=== PATIENT | female | born 1965 | race Caucasian/White ===

== ENCOUNTER → 2021-01-09 01:50 | Outpatient (CLI) | payer OTHER, SELFPAY ==
--- NOTE | 2021-01-09 | DI.US_ITS ---
Exam(s) US PAIN CLINIC NEEDLE GUIDANCE EXAM: MUSCLE PAIN, RT UPPER SHOULDER PAIN,S46.911S,ULTRASOUND GUIDED INJECTION COMPARISON: US US THYROID from 10/03/2020 TECHNIQUE: Ultrasound performed using standard protocol. FINDINGS: Ultrasound guidance was provided for trigger point injection performed by neckties painter. Radiologist not present this procedure IMPRESSION: DATA REPOSITORY:
[2021-01-09 08:42] VITALS: BP 148/86; PULSE 76; RESP 16; TEMP 36.4; O2SAT 97
[2021-01-09 09:22] VITALS: PULSE 63; O2SAT 98
[2021-01-09] MEDS: Lidocaine 2% Pres-Free 5 ML VIAL IJ (09:22)
[2021-01-09] MEDS: Dexamethasone Sod. Phos./Pres-Free 10 MG/ML VIAL IJ (09:22)
--- NOTE | 2021-01-09 10:12 | PDOC.PAIN_ITS ---
Pain Clinic Procedure Note Procedure Note Procedure Note: ULTRASOUND GUIDED RIGHT trapezius, cervical paraspinous and levator scapulae muscle trigger point INJECTIONS Pre-Procedural Evaluation: More Hickman has been referred to the [facility] for an Ultrasound Guided right trapezius, cervical paraspinous and levator scapulae muscle trigger point injection for a chief complaint of upper back and neck pain. Pre-procedure Pain Score: 5/10 DX: Muscle pain Patient was interviewed and the medical record reviewed. There were no medical, pharmacologic, radiographic, or other structural contraindications to preforming an ultrasound guided injection. Risks and expected side effects as well as potential benefits of the procedure were reviewed. The patient consent form was signed and witnessed. Standard time-out procedure was performed. The use of direct ultrasound visualization of the needle (rather than a non- guided injection) was required to increase patient safety by excluding inadvertent intramuscular, intratendinous, or intraneural needle placement and minimizing bleeding by avoiding osteochondral or vascular injury from the needle. Additionally, the increased accuracy of placement may increase clinical effectiveness and will allow higher diagnostic specificity when evaluating effectiveness of this injection. Procedure Description: The patient was placed in theprone position and automated blood pressure cuff and pulse oximeter applied for monitoring during the procedure and recorded in the medical record. Pre-injection ultrasound scanning of the area of interest was performed using a linear transducer, identifying relevant anatomy, landmarks, and neurovascular structures allowing for optimal needle path. The site was then prepared in the usual sterile fashion, using thorough Chlorhexadine preparation of the skin and sterile draping. The same ultrasound transducer was then passed into the sterile field using sterile probe cover and sterile ultrasound gel. The injection target was again visualized. Skin and subcutaneous tissues were anesthetized with 1 mL of 1% Lidocaine. A 22 guage spinal needle 3.5 inch needle was placed under live ultrasound guidance, using an in-plane approach, to the target area. After visualization of the needle tip at the target area, a mixture of 4 mL 2% Lidocaine and 1 mL Dexamethasone (10 mg/cc), totaling 5 mL of injectate was delivered after negative aspiration for blood. Ultrasound images were captured and stored for documentation purposes. Post-procedure Pain Score: 1/10 Vital signs were stable throughout the procedure and were as recorded in the docflowsheet by the nursing staff. Follow up plans and appointments were discussed with the patient.Post procedure instruction was given as documented in nursing documentation and having met discharge criteria, they were discharged from the [facility]. COMMENTS: She did well with the procedure. She recently had an MRI of the lumbar spine completed and I reviewed that with her. I recommended that she come back for a follow up to determine appropriate treatment. Alfredo Hernandez DO, MPH Pain Management
== END ==
PROVIDERS: PCP Family Medicine; Visit Provider Preventive Medicine Occupational Medicine
DX: M79.18 Myalgia, other site (principal)
CPT/HCPCS: 20553; 76942

== ENCOUNTER 2021-05-08 12:15 | Outpatient (CLI) | payer MEDICARE, SELFPAY ==
--- NOTE | 2021-05-08 06:00 | DI.RAD_ITS ---
Exam(s) XR PAIN CLINIC LUMBAR SP 2V EXAM: XR PAIN CLINIC LUMBAR SP 2V CLINICAL HISTORY: Dx: Lumbar Spondylosis TECHNIQUE: Realtime digital imaging was performed. Seven hard copy images. CONTRAST MATERIAL: Water soluble contrast was administered. COMPARISON: No exams were available for comparison FINDINGS: Fluoroscopy was provided for Dr. Hernandez for guidance with lumbar spine pain clinic injection. Please s ee procedure note for details. IMPRESSION: Fluoro time 60 second DATA REPOSITORY: RADIATION DOSE DELIVERED: brooklyn Munson=28.03 mGy
[2021-05-08 12:32] VITALS: BP 138/86; PULSE 68; RESP 20; TEMP 36.1; O2SAT 97
--- NOTE | 2021-05-08 13:16 | PDOC.PAIN ---
Pain Clinic Procedure Note Procedure Note Procedure Note: Lumbar/Sacral Medial Branch Blocks More Hickman has been referred to the [facility] for lumbar/sacral medial branch blocks. COMMENTS: She was previously evaluated in our clinic. Dx: Lumbosacral spondylosis without myelopathy Pre-procedure pain VAS: 5/10 Patient was interviewed and the medical record reviewed. There were no medical, pharmacologic, radiographic or other structural contraindications to attempting fluoroscopically guided local anesthetic lumbar/sacral medial branch blocks. Risks and expected side effects as well as potential benefit of the procedure were reviewed and voiced concerns addressed. The printed consent form was signed and witnessed. Standard time-out procedure was performed. Patient was placed in the prone position on the fluoroscopy table and automated blood pressure cuff and pulse oximeter applied. The skin entry points for approaching the anatomic target points of the segmental medial branches of the bilateral L3-L5DR were identified with anfluoroscopy and marked. Following thorough Chlorhexadine preparation of the skin and draping and 1% lidocaine infiltration of the skin entry points and subcutaneous tissues, a 22 gauge spinal needle was placed under fluoroscopic guidance down on to the target point for each respective segmental medial branch.Position was confirmed in A/P, oblique and lateral views with 0.25ml of omnipaque 240. Coult be this method .5ml 0.5% Bupivacaine was injected or 1% Lidocaine. Vital signs were stable throughout the procedure and were as recorded in the docflowsheet by the nursing staff. Follow up plans and appointments were discussed and was instructed to keep careful note of how the usual pain was modified by these injections. Specifically was asked to keep a pain diary for the next 24 hours using a numeric pain scale of 0-10 and report these results at the follow-up visit. Post procedure instruction was given as documented in the nursing documentation and having met discharge criteria. Patient was discharged from the [facility]. Based on the medial branches blocked today, if the patient has adequate relief and we are able to proceed to radiofrequency ablation, the treatment should result in the denervation of the bilateral L4-L5 and L5-S1 FACET JOINTS]. We would expect to denervate a total of 4 facets during the radiofrequency ablation. COMMENTS: She will call back with her 1-4 hour post-procedure pain/activity levels. Post-procedure pain VAS: 0/10. Alfredo Hernandez DO, MPH [facility]-Pain Management [facility] CC: Matteo Grier
[2021-05-08] MEDS: Omnipaque 240 MG/ML 50 ML BTL IJ (13:37)
[2021-05-08] MEDS: Bupivacaine 0.5% Pres-Free 10 ML VIAL IJ (13:37)
[2021-05-08 13:39] VITALS: BP 148/88; PULSE 70; RESP 16; O2SAT 97
== END 2021-05-08 12:16 | disposition home or self-care (01) ==
LOC: PC 12:16
PROVIDERS: PCP Family Medicine; Visit Provider Preventive Medicine Occupational Medicine
DX: M47.817 Spondylosis without myelopathy or radiculopathy, lumbosacral region (principal)
CPT/HCPCS: 64493; 64494; 72100; Q9967

== ENCOUNTER 2021-06-17 14:56 | Outpatient (CLI) | payer MEDICARE, SELFPAY ==
--- NOTE | 2021-06-17 06:00 | DI.RAD_ITS ---
Exam(s) XR PAIN CLINIC LUMBAR SP 2V EXAM: XR PAIN CLINIC LUMBAR SP 2V CLINICAL HISTORY: Dx: Lumbar Spondylosis TECHNIQUE: 2D and realtime digital imaging was performed. CONTRAST MATERIAL: Refer to procedure report. COMPARISON: No exams were available for comparison FINDINGS: Fluoroscopy was provided for Dr. Hernandez during the performance of a lumbar medial branch block. Jose doe refer to the procedure report for complete details. Ka,r=41.65 mGy IMPRESSION:
[2021-06-17 15:11] VITALS: BP 161/101; PULSE 73; RESP 20; TEMP 36.8; O2SAT 98
--- NOTE | 2021-06-17 15:43 | PDOC.PAIN_ITS ---
Pain Clinic Procedure Note Procedure Note Procedure Note: Lumbar/Sacral Medial Branch Blocks More Hickman has been referred to the [facility] for lumbar/sacral medial branch blocks. COMMENTS: She did very well with her first LMBB on 05/08/21. Her pre-procedure pain VAS was 8/10. Dx: Lumbosacral spondylosis without myelopathy Patient was interviewed and the medical record reviewed. There were no medical, pharmacologic, radiographic or other structural contraindications to attempting fluoroscopically guided local anesthetic lumbar/sacral medial branch blocks. Risks and expected side effects as well as potential benefit of the procedure were reviewed and voiced concerns addressed. The printed consent form was signed and witnessed. Standard time-out procedure was performed. Patient was placed in the prone position on the fluoroscopy table and automated blood pressure cuff and pulse oximeter applied. The skin entry points for approaching the anatomic target points of the segmental medial branches of the bilateral L3-L5DR were identified with anfluoroscopy and marked. Following thorough Chlorhexadine preparation of the skin and draping and 1% lidocaine infiltration of the skin entry points and subcutaneous tissues, a 22 gauge 5 spinal needle was placed under fluoroscopic guidance down on to the target point for each respective segmental medial branch.Position was confirmed in A/P, oblique and lateral views with 0.25ml of omnipaque 240. At this point I injected 0.5ml of 2% Lidocaine to the segmental sensory nerves. Vital signs were stable throughout the procedure and were as recorded in the docflowsheet by the nursing staff. Follow up plans and appointments were discussed and was instructed to keep careful note of how the usual pain was modified by these injections. Specifically was asked to keep a pain diary for the next 24 hours using a numeric pain scale of 0-10 and report these results at the follow-up visit. Post procedure instruction was given as documented in the nursing documentation and having met discharge criteria. Patient was discharged from the [facility]. Based on the medial branches blocked today, if the patient has adequate relief and we are able to proceed to radiofrequency ablation, the treatment should result in the denervation of the bilateral L4-L5 and L5-S1 FACET JOINTS. We would expect to denervate a total of 4 facets during the radiofrequency ablation. COMMENTS: Post-procedure pain VAS was 0/10. Alfredo Hernandez DO, MPH [facility]-Pain Management [facility] CC: Matteo Grier
[2021-06-17] MEDS: Omnipaque 240 MG/ML 50 ML BTL IJ (15:48)
[2021-06-17] MEDS: Lidocaine 2% Pres-Free 5 ML VIAL IJ (15:49)
[2021-06-17 16:05] VITALS: BP 141/100; PULSE 69; RESP 18; O2SAT 98
== END 2021-06-17 14:57 | disposition home or self-care (01) ==
LOC: PC 14:57
PROVIDERS: PCP Family Medicine; Visit Provider Preventive Medicine Occupational Medicine
DX: M47.817 Spondylosis without myelopathy or radiculopathy, lumbosacral region (principal)
CPT/HCPCS: 64493; 64494; 72100; Q9967

== ENCOUNTER 2021-08-27 09:38 | Outpatient (CLI) | payer MEDICARE, SELFPAY ==
[2021-08-27 10:07] VITALS: BP 164/109; PULSE 69; RESP 20; TEMP 36.5; O2SAT 99
[2021-08-27] MEDS: Midazolam 2 MG/2 ML VIAL IVP (10:40)
[2021-08-27] MEDS: fentaNYL 100 MCG/2 ML VIAL IVP ×2 (10:40→10:56)
[2021-08-27 11:25] VITALS: BP 100/68; PULSE 49; RESP 15; O2SAT 87
--- NOTE | 2021-08-27 11:26 | DI.RAD_ITS ---
Exam(s) XR PAIN CLINIC LUMBAR SP 2V EXAM: XR PAIN CLINIC LUMBAR SP 2V CLINICAL HISTORY: Dx: Lumbar Spondylosis TECHNIQUE: 2D and realtime digital imaging was performed. CONTRAST MATERIAL: Refer to procedure report. COMPARISON: No exams were available for comparison FINDINGS: Fluoroscopy was provided for Dr. Hernandez during the performance of a lumbar radiofrequency ablation. Pl ease refer to the procedure report for complete details. Ka,r=72.9 mGy IMPRESSION:
--- NOTE | 2021-08-27 11:29 | PDOC.PAIN ---
Pain Clinic Procedure Note Procedure Note Procedure Note: Bilateral Lumbar Radiofrequency with Coolief Machine PROCEDURE NOTE Date of Service: August 27, 2021 Patient: More Duvall Provider: Alfredo Hernandez DO, MPH Pre Operative Diagnosis: Lumbosacral Spondylosis without Myelopathy Post Operative Diagnosis: Same Pre-procedure pain; VAS= 7/10 PROCEDURE: Radiofrequency Ablation of medial branches - Bilateral L3 L4 L5 and lateral branches of bilateral S1. More Hickman was brought into the fluoroscopy suite and positioned into the prone position on the fluoroscopy table and allowed to adjust to a position of comfort. A grounding pad was placed on the left thigh. The lumbar region was widely prepped with a chloraprep solution, allowed to air dry and draped in standard sterile surgical fashion. Local anesthesia was provided by 4 mL of 2 % Lidocaine delivered with a 25g needle. A 17g 150 mm radiofrequency introducer needle was placed to the planned anatomic targets guided with intermittent fluoroscopy with a perpendicular approach to terminally place at the junction of the superior articular process and the transverse process of the bilateral L4 L5, the base of the sacral ala on the bilateral for the L5 medial branch nerve and the area between base of the sacral ala to the S1 foramen bilaterally. The stylets were removed and radiofrequency probes with a 4mm active tip were then inserted. Needle tip position of the probes was verified in the AP, oblique, and lateral views. At each site, the medial branch nerve was stimulated at 2 Hz to a maximum 1-2 volts determined to finalize safe needle and electrode placement. The patient was awake and responsive during this portion of the procedure. Each target was anesthetized with 1-2 mL of 2% Lidocaine for anesthesia for lesioning and then each target was lesioned at 80 degrees Celsius for 2 minutes and 30 seconds. Tissue impedences were noted to be between 250 and 500 Ohms. I injected 1/4 cc of Depomedrom (40 mg/cc) followed by 1 cc of Bupivacaine (0.5%) at each segmental sensory nerve. Electrodes and needles were then removed and bandages placed over the needle placement sites, the patient then returned to the supine position on a stretcher and transported to the recovery room without hemodynamic, neurologic, or allergic reactions. Fluoroscopic images were printed for hard copy recording and digitally archived. POST PROCEDURE EVALUATION: IMPRESSION: 1. Summary of procedure. Medication given is documented in the MAR. 2. The patient will be contacted in 1-3 weeks 3. Estimated Blood Loss: <5 mls 4. Fluoroscopy time: Documented in the EMR. Follow up plans and appointments were discussed with the More . Post procedure instruction was given as documented in nursing documentation and having met discharge criteria, More was discharged from the Pain Management Center. COMMENTS: No apparent complications. Post-procedure pain: VAS= 1/10. F/U with our office as needed. I personally performed this entire procedure. Alfredo Hernandez DO, MPH Attending Physician Pain Management
[2021-08-27] MEDS: Bupivacaine 0.5% Pres-Free 30 ML VIAL IJ (11:44)
[2021-08-27] MEDS: methylPREDNISolone ACETATE 40 MG/ML VIAL IJ (11:44)
[2021-08-27 11:45] VITALS: BP 120/69; PULSE 75; RESP 20; O2SAT 98
[2021-08-27] MEDS: Lidocaine 2% Multi-Dose 20 ML VIAL IJ (11:45)
[2021-08-27] MEDS: Lactated Ringers 500 ML 80 ML IV (11:46)
== END 2021-08-27 09:39 | disposition home or self-care (01) ==
LOC: PC 09:38
PROVIDERS: PCP Family Medicine; Visit Provider Preventive Medicine Occupational Medicine
DX: M47.817 Spondylosis without myelopathy or radiculopathy, lumbosacral region (principal); M54.50 Low back pain, unspecified
CPT/HCPCS: 64635; 64636; 72100; J1030; J2250; J3010; J3490

== ENCOUNTER 2021-10-23 13:47 | Outpatient (CLI) | payer MEDICARE, SELFPAY ==
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
--- OUTSIDE RECORDS SUMMARY | 2021-10-23 13:53 | XMS_ITS | Encounter Summary ---
:1965 Author Organization [place] [address] Care Team Providers Name Role Phone Roula Hernandez DO Primary Care Provider Reason for Visit Reason Comments Establish Care High Triglycerides (1109) Encounter Details Date Type Department Care Team Description 11/10/2013 Office Visit Cardiology at [facility] Jr., Hypertr iglyceridemia; Mare HERRERA Sleep apnea [address] [facility] [address] [facility] [address]ef[address] A [address] [place], [place] [id number] [phone] Social History Tobacco Use Types Packs/Day Years Used Date Former Smoker Cigarettes 0.5 20 Comments: quit 16 years ago Sex Assigned at Date Recorded Not on file documented as of this encounter Last Filed Vital Signs Vital Sign Reading Time Taken Comments Blood Pressure 124/76 11/10/2013 8:31 AM left arm naya ding EDT Pulse 64 11/10/2013 8:31 AM per ekg EDT Temperature - - Respiratory Rate - - Oxygen Saturation - - Inhaled Oxygen Concentration - - Weight 103.4 kg (228 lb) 11/10/2013 8:25 AM EDT Height 160 cm (5' 3) 11/10/2013 8:25 AM EDT Body Mass Index 40.39 11/10/2013 8:25 AM EDT documented in this encounter Patient Instructions Patient InstructionsBacilio Lau Jr., MD - 11/10/2013 9:23 AM EDT Exercise Physical activity- minimum of 30 minutes of moderate intensity physical activity on most, or preferably all, days of the week - 3 hours of walking a week gives a 35% reduction in angina and heart attacks - Benefits of Exercise ??? 1) Increased bone strength ??? 2) Increased cardiovascular conditioning ? ? 3) Improved cholesterol: decreased LDL(bad stuff) & increased HDL(good stuff) ??? 4) Increased sense of well being ??? 5) Better weight control/weight loss ??? 6) Decreased Blood pressure ??? 7) Decreased stress ??? 8) Reduced Risk of Heart Attack ??? Tricks to exercising- - 1) Do it long enough (1/2 hour or more) - 2) Do it hard enough (you can talk, but not a long conversation) - 3) Do it often enough (every day if possible) - 4) Do it safely ( don't hurt your joints) - 5) Do something you like (or at least don't hate) - 6) Start out gradually if you haven???t been exercising - The older you are the more you have to stretch Wait 1-2 hours after eating Calorie Burn calculator: http://www.exrx.net/Aerobic/WalkCalExp.html http://www.Agricultural Solutionsrx.net/Calculators/Calories.html documented in this encounter Progress Notes Bacilio Lau Jr., MD - 11/10/2013 9:11 AM EDT Referring PCP: ROULA HERNANDEZ DO Cardiology consultation History: Roula Mantilla is a 48 y.o. old female seen at the request of ROULA HERNANDEZ DO for evaluation of edema and high triglycerides. She has a long standing history of hyperlipidemia and has been on lovastatin for years. I do not have old labs to review but the most recent ones are as below. She has gained weight in the last 9 months due to fatigue and decreased exercise. She was found to be allergic to mold in her house and is now feeling better, back to work, and doing some light activity. She notices more DIAZ now than before she was sick. She has no exertional chest pain or palpitations. 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 Allergies Allergen Reactions ??? Cis Free Text Allergy grass, tree, dust. CIS - positive skin test ??? Gloves, Latex CIS - positive skin test Current Outpatient Prescriptions Medication Sig Dispense Refill ??? propranolol (INDERAL) 40 mg tablet Take 40 mg by mouth 2 times daily. ??? minocycline (MINOCIN;DYNACIN) 50 mg capsule Take 50 mg by mouth 2 times daily. ??? lovastatin (MEVACOR) 40 mg tablet Take 40 mg by mouth 2 times daily. ??? cyclobenzaprine (FLEXERIL) 5 mg tablet Take 5 mg by mouth 2 times daily as needed. ??? traMADol (ULTRAM) 50 mg tablet Take 50 mg by mouth 2 times daily as needed. ??? senna (SENOKOT) 8.6 mg tablet Take 3 tablets by mouth daily as needed. ??? lubiprostone (AMITIZA) 24 mcg capsule Take 24 mcg by mouth 2 times daily (with meals). ??? mometasone (ELOCON) 0.1 % cream Apply topically daily. ??? desoximetasone (TOPICORT) 0.25 % cream Apply topically. As directed by PCP ??? levothyroxine (SYNTHROID) 25 mcg tablet Take 25 mcg by mouth daily. ??? cyanocobalamin, vitamin B-12, 250 mcg tablet Take 250 mcg by mouth 2 times daily. ??? lactobacillus (BACID) tablet Take 1 tablet by mouth daily. Patient Active Problem List Diagnosis ??? Elevated cholesterol with elevated triglycerides ??? Fibromyalgia ??? Obesity ??? Rosacea ??? Migraines ??? Irritable bowel syndrome ??? Hypothyroidism ??? Sleep apnea On CPAP ??? Raynaud's syndrome Coronary risk factors: Smoking: former Diabetes:no Hypercholesterolemia:yes Hypertension:no Family history of premature disease:father with cerebral aneurysm Cardiac tests: Echo 10/2013: EF 65%, normal diastolic function, trivial MR and TR, trivial pericardial effusion, PA pressure 35-40mmHg Surgical history or other active medical issues: Recent cholecystectomy Family History Problem (# of Occurrences) Relation (Name,Age of Onset) Asthma (1) Mother Diabetes (2) Maternal Aunt, Paternal Grandfather Hyperlipidemia (1) Father History Social History ??? Marital Status: Spouse Name: N/A Number of Children: N/A ??? Years of Education: N/A Occupational History ??? [employer] Social History Main Topics ??? Smoking status: Former Smoker -- 0.5 packs/day for 20 years Types: Cigarettes ??? Smokeless tobacco: None Comment: quit 16 years ago ??? Alcohol Use: None ??? Drug Use: None ??? Sexually Active: None Other Topics Concern ??? None Social History Narrative ??? None ROS: weight gain as above, sleeping well with CPAP, headaches fairly well controlled, otherwise negative except as above Physical Exam: BP 124/76 Pulse 64 Ht 160 cm (5' 3) Wt 103.42 kg (228 lb) BMI 40.40 kg/m2 General: WD, overweight Skin: no rash HEENT: no xanthoma or arcus senilis Neck: No JVD, HJR, or carotid abnormalities, thyroid benign Lungs: Clear Cor: RR, normal S1, S2. PMI not displaced. No murmur or gallop Abd: soft, scars well healed, no L/S/K enlargement or bruits Ext: Pulses preserved, equal bilaterally, 1+ edema, no cyanosis or clubbing Musculoskeletal: no muscle tenderness, no joint deformities Neuro: grossly nonfocal Psych: normal affect, appropriate EKG: NSR 64, normal Lab data: Results for ROULA MANTILLA ( ) as of 11/10/2013 09:11 Ref. Range 09/29/2013 00:00 Chol, Total No range found 279 HDL No range found 36 Triglycerides No range found 1109 LDL Cholesterol No range found 91 TSH: 2.195 Assessment: 1) dyspnea likely from weight gain and deconditioning. Normal EF on echo and no significant valve disease. I encouraged her to gradually be more active and to aim for at least 30 minutes of exercise a day. 2) high TG- made worse by weight and inactivity, but high enough that meds will have to be adjusted.I will stop lovastatin and start gemfibrozil 600mg BID. TSH corrected so residual hypothyroidism notcontributing to high TG. 3) edema- due to weight and inactive job, sitting all day. Increased exercise will help as will using elastic stockings Plan: 1) A discussion was held concerning the patient's chief complaints, the presumptive diagnosis(es) and the options for further evaluation and management. Reviewed the assessment above and the recommendations below in detail. 2) medical therapy as above 3) Written instructions re exercise 4) follow up 3 months with repeat lipid labs before documented in this encounter Plan of Treatment Not on filedocumented as of this encounter Visit Diagnoses Diagnosis Hypertriglyceridemia Pure hyperglyceridemia Sleep apnea Unspecified sleep apnea documented in this encounter Care Teams [employer] Worker Relationship Specialty Start Date End Date Roula Heranndez DO PCP - General 10/05/13 09/03/15 [address] [place] [address] documented as of this encounter
--- OUTSIDE RECORDS SUMMARY | 2021-10-23 13:53 | XMS_ITS | Encounter Summary ---
:1965 Author Organization [facility] [place] [address] Care Team Providers Name Role Phone Matteo Grier DO Primary Care Provider Reason for Referral Diagnostic Test (Routine) - Closed Specialty Diagnoses / Procedures Referred By Contact Refer red To Contact Radiology Diagnoses Low back pain, non-specific [facility] Rad Mri Procedures MRI Lumbar Spine wo Contrast (Generic) [place] [address] [place] [phone] Phone: Referral ID Status Reason Start Date Expiration Date Visits V isits Requested Authorized [id number] Closed Specialty 10/29/2016 12/27/2016 1 1 Service Requested Encounter Details Date Type Department Care Team Description 10/06/2016 Orders Only [facility], Low back pain, [place] DATA MANAGEMENT ANALYST [place] [address] Social History Tobacco Use Types Packs/Day Years Used Date Former Smoker Cigarettes 0.5 20 Comments: quit 16 years ago Sex Assigned at Date Recorded Not on file documented as of this encounter Plan of Treatment Not on filedocumented as of this encounter Results MRI Lumbar Spine wo Contrast (Generic) (11/06/2016 1:45 PM EDT) Anatomical Region Laterality Modality L-spine Magnetic Resonance Specimen (Source) Anatomical Location Collection Method / Collectio n Time Received Time / Laterality Volume Impressions 11/06/2016 2:49 PM EDT Exaggerated lumbar lordosis and moderate hypertrophic L4-5 facet arthropathy. No central canal stenosis. Diffusely heterogeneous signal of the re gional bone marrow which may reflect bone demineralization. Comment: The following findings are so c ommon in people without low back pain that while we report their presence, the y must be interpreted with caution and in context of the clinical situation (Re kandace Reed et al, Spine 2001). Findings: (Prevalence in patients withou t low back pain), disc degeneration (decreased T2 signal, height loss, bulge ) (91%), disc T2-signal loss (83%), disc height loss (56%), disc bulge (64%), dis c protrusion (32%), annular fissure (38%). Narrative 11/06/2016 2:49 PM EDT EXAMINATION: MRI LUMBAR SPINE WO CONTRAST (GENERIC) CLINICAL HISTORY: low back pain TECHNIQUE: MRI of the lumbar spine was p erformed without contrast, routine radiculopathy protocol. ? COMPARISON: MRI lumbar spine FINDINGS: Exaggerated lumbar lordosis wi th minimal retrolisthesis of L1 with respect to L2. The regional bone marrow is diffusely heterogeneous in signal without focal aggressive process. The ve rtebral body heights are maintained. The conus is normal in signal and caliber, t erminating at L1-L2. Visualized retroperitoneal contents are unremarkabl e. Findings at individual levels: T12-L1: ??Degenerative disc disease with out canal or neural foraminal stenosis. L1-L2: ??Mild annular disc bulge contrib utes to mild subarticular recess narrowing. No significant central canal or neural foraminal stenosis. L2-L3: ??MR annular disc bulge. No signi ficant spinal canal or neural foraminal stenosis. ? L3-L4: ??Minimal annular disc bulge and minimal left subarticular recess narrowing. No significant spinal canal o r neural foraminal stenosis. ? L4-L5: ??Hypertrophic facet arthropathy contributes to mild left subarticular recess and neural foraminal narrowing. N o central canal or right neural foraminal stenosis. ? L5-S1: ??Mild facet arthropathy. No sign ificant spinal canal or neural foraminal stenosis. ? Procedure Note Belinda Hagen MD - 11/06/2016Form atting of this note might be different from the original. EXAMINATION: MRI LUMBAR SPINE WO CONTRAS T (GENERIC) CLINICAL HISTORY: low back pain TECHNIQUE: MRI of the lumbar spine was p erformed without contrast, routine radiculopathy protocol. COMPARISON: MRI lumbar spine FINDINGS: Exaggerated lumbar lordosis wi th minimal retrolisthesis of L1 with respect to L2. The regional bone marrow is diffusely heterogeneous in signal without focal aggressive process. The ve rtebral body heights are maintained. The conus is normal in signal and caliber, t erminating at L1-L2. Visualized retroperitoneal contents are unremarkabl e. Findings at individual levels: T12-L1: Degenerative disc disease withou t canal or neural foraminal stenosis. L1-L2: Mild annular disc bulge contribut es to mild subarticular recess narrowing. No significant central canal or neural foraminal stenosis. L2-L3: MR annular disc bulge. No signifi cant spinal canal or neural foraminal stenosis. L3-L4: Minimal annular disc bulge and mi nimal left subarticular recess narrowing. No significant spinal canal o r neural foraminal stenosis. L4-L5: Hypertrophic facet arthropathy co ntributes to mild left subarticular recess and neural foraminal narrowing. N o central canal or right neural foraminal stenosis. L5-S1: Mild facet arthropathy. No signif icant spinal canal or neural foraminal stenosis. IMPRESSION Exaggerated lumbar lordosis and moderate hypertrophic L4-5 facet arthropathy. No central canal stenosis. Diffusely heterogeneous signal of the re gional bone marrow which may reflect bone demineralization. Comment: The following findings are so c ommon in people without low back pain that while we report their presence, the y must be interpreted with caution and in context of the clinical situation (Re ference- Jarvik et al, Spine 2001). Findings: (Prevalence in patients withou t low back pain), disc degeneration (decreased T2 signal, height loss, bulge ) (91%), disc T2-signal loss (83%), disc height loss (56%), disc bulge (64%), dis c protrusion (32%), annular fissure (38%). Christopher Hinton MD IMG MRI ORDERABLES documented in this encounter Visit Diagnoses Diagnosis Low back pain, non-specific Low back pain, non-specific documented in this encounter Care Teams Wire Coiler Machine Operator Relationship Specialty Start Date End Date Matteo Grier DO PCP - General Family Medicine 08/10/16 [address] [place] [address] documented as of this encounter
--- OUTSIDE RECORDS SUMMARY | 2021-10-23 13:53 | XMS_ITS | Encounter Summary ---
:1965 Author Organization [facility] [place] [address] Care Team Providers Name Role Phone Ruddy Lima DO, David Primary Care Provider Reason for Visit Reason Comments Follow-up Consultation (Routine) - Closed Specialty Diagnoses / Procedures Referred By Contact Refer red To Contact Dermatology Diagnoses Hyperhidrosis hyperhidrosis, red sensitive area on scalp Alfredo Fox DO Hammer, Charles J, MD [address] [place], [place] DERMATOLOGY [address] [place] [address] Fax: Referral ID Status Reason Start Date Expiration Date Visits V isits Requested Authorized [id number] Closed Consult, Test 09/04/2015 09/03/2016 [facility] PCP Updated and/or Approved Encounter Details Date Type Department Care Team Description 10/25/2015 Office Visit Dermatology at [facility] Maldonado Garza MD Hyperhidrosis; [address] [place] [address] [place] [address] [place] [address] (Wo rk) Social History Tobacco Use Types Packs/Day Years Used Date Former Smoker Cigarettes 0.5 20 Comments: quit 16 years ago Sex Assigned at Date Recorded Not on file documented as of this encounter Progress Notes Maldonado Garza MD - 10/25/2015 2:15 PM EDT PROBLEM: 1. Hyperhidrosis, new onset. 2. Skin check. More is a 50-year-old woman whom I last saw in 2000. She is concerned about 2 spots on the scalp, spots on her legs, she would like a full skin exam. She notes that for the last few years she has had increased sweating with just very mild exertion. It was never this bad in her youth. She would have a little bit of sweating, but now even just cleaning the house or sometimes even just sitting, she will sweat. She was in the past on levothyroxine. She states she has not taken any for a time. She is to see her PCP, Dr. Fox, within the next month, and thinks that he will probably be checking a TSH at that time. Her current medications were really were started primarily after the onset of the hyperhidrosis. She has tried DermiDry oral vitamin supplements for the last 2 or 3 months to try and help the problem. She is also on propranolol, Lovastatin, ibuprofen, minocycline, Savella, vitamin D, desoximetasone, senna, Elocon cream, vitamins B12 and D3. The patient, about 3 years ago, developed significant shortness of breath and fatigue, which was associated with mold exposure, living [place] house. She states that the onset of the profuse sweating seems to date since this problem. Physical examination reveals a pleasant, overweight 50-year-old woman who has a benign examination of the face, the chest, the back, the hands, arms, forearms, thighs, and the calves. Her skin is mildly moist as I examine her, and when she gets up off of the table, she has sweated and the legs stick to the exam table paper. She has 2 erythematous papules within her scalp, 1 in the left occipital, 1 in the right frontoparietal scalp. ASSESSMENT/PLAN: 1. Hyperhidrosis. A. Recommend that Dr. Fox check TSH with routine labs this year for patient, even though the patient's past diagnosis was hypothyroidism. B. Checked the patient's pulse, was about 70, and the patient denies episodes of palpitations or rapid heart rate, shortness of breath, etc. C. Begin trial of glycopyrrolate 1 mg p.o. b.i.d., try it for a month and then I have asked her to call me with her progress, dispensed #60 with 1 refill. If not effective, could go to 2 p.o. b.i.d. Discussed the side effects of the medication, warned about possible dry mouth, dry eyes, etc. D. Note, medications reviewed and no meds associated with causing hyperhidrosis found in her med list. 2. Benign skin examination. A. No evidence of any malignant lesions. B. Return to clinic here p.r.n. 3. Rosacea. A. Continue minocycline. B. I believe that this patient's scalp lesions represent mild rosacea. C. Patient reassured. Return to clinic here p.r.n. cc: Alfredo Fox DO documented in this encounter Plan of Treatment Not on filedocumented as of this encounter Visit Diagnoses Diagnosis Hyperhidrosis Primary focal hyperhidrosis Nevus Benign neoplasm of skin, site unspecifie d documented in this encounter Care Teams Dinkey Engine Firer Relationship Specialty Start Date End Date Alfredo Fox DO PCP - General General Internal Medicine 09/04/15 08/09/16 documented as of this encounter
--- OUTSIDE RECORDS SUMMARY | 2021-10-23 13:53 | XMS_ITS | Encounter Summary ---
:1965 Author Organization [facility] [place] [address] Care Team Providers Name Role Phone Roula Moody DO Primary Care Provider Reason for Visit Reason Onset Date Comments Advice Only 11/21/2013 FYI Encounter Details Date Type Department Care Team Description 11/21/2013 Telephone Cardiology at [facility] Bacilio Lau Jr., MD Advice Only (FYI) [address] [place] [address] [address] [place], [place] [id number] (Wo rk) Social History Tobacco Use Types Packs/Day Years Used Date Former Smoker Cigarettes 0.5 20 Comments: quit 16 years ago Sex Assigned at Date Recorded Not on file documented as of this encounter Miscellaneous Notes Telephone Encounter - Barbie Carvalho RN - 12/11/2013 4:24 PM EDT Spoke with patient - she seemed reluctant to try Lipitor agaihn, but did agree to take it every other day. [facility] Telephone Encounter - Bacilio Lau Jr., MD - 12/11/2013 3:39 PM EDT Have her try it every other day Telephone Encounter - Klaudia Nagel RN - 12/11/2013 3:21 PM EDT I called and gave her chol. Results and instructed her on starting Lipitor and she says she has tried that and also had muscle pain. Telephone Encounter - Bacilio Lau Jr., MD - 12/11/2013 7:42 AM EDT Labs worse off meds- did not tolerate gemfibrosil and lovastatin not effective so needs to go on atorvastatin 80 mg a day Repeat labs in 2 months before scheduled follow up visit Telephone Encounter - Laurie Khan RN - 12/08/2013 4:03 PM EDT External Lipid Results entered. Results for ROULA MANTILLA ( ) as of 12/08/2013 16:01 Ref. Range 09/29/2013 00:00 12/08/2013 00:00 Chol, Total No range found 279 312 HDL No range found 36 34 Triglycerides No range found 1109 1529 LDL Cholesterol No range found 91 108 Telephone Encounter - Klaudia Nagel RN - 11/21/2013 11:45 AM EDT Called and left message to remember to check lab work at the end of the month. Telephone Encounter - Bacilio Lau Jr., MD - 11/21/2013 11:34 AM EDT Needs to get the lipid labs as previously scheduled then will decide re other meds or just diet Telephone Encounter - Riya Ramos - 11/21/2013 9:35 AM EDT Patient called to let us know that since stopping gemfibrozil the severe muscle pains have gone away. See previous note. documented in this encounter Plan of Treatment Not on filedocumented as of this encounter Visit Diagnoses Diagnosis Elevated cholesterol - Primary Pure hypercholesterolemia documented in this encounter Care Teams Plastic Boat Patcher Relationship Specialty Start Date End Date Roula Moody DO PCP - General 10/05/13 09/03/15 [address] [place] [address] documented as of this encounter
--- OUTSIDE RECORDS SUMMARY | 2021-10-23 13:53 | XMS_ITS | Encounter Summary ---
:1965 Author Organization [facility] Address [place] [id number] Care Team Providers Name Role Phone More Moody DO Primary Care Provider Reason for Referral Physical Therapy (Routine) - Closed Specialty Diagnoses / Procedures Referred By Contact Refer red To Contact Physical Therapy Diagnoses Chronic low back pain Gina Morataya APRN [facility] [place] [address] Referral ID Status Reason Start Date Expiration Date Visits V isits Requested Authorized [id number] Closed Evaluate and 01/04/2015 07/03/2015 1 1 Treat Consultation (Routine) - Closed Specialty Diagnoses / Procedures Referred By Contact Refer red To Contact Pain Management Diagnoses Chronic low back pain Gina Morataya APRN [facility] Procedures PRO INJECTION, SACROILIAC JOINT [facility] [place] [address] [place] [address] Fax: Referral ID Status Reason Start Date Expiration Date Visits V isits Requested Authorized [id number] Closed Consult, 01/04/2015 01/04/2016 1 1 Test & Treat Reason for Visit Reason Comments Neck Pain Low Back Pain Encounter Details Date Type Department Care Team Description 01/04/2015 Office Visit [facility] [place], Gina M, Chronic low back pain [place] SURFACER OPERATOR [address] [place], [place] PAIN MEDICINE [address] [place] [address] [phone] Social History Tobacco Use Types Packs/Day Years Used Date Former Smoker Cigarettes 0.5 20 Comments: quit 16 years ago Sex Assigned at Date Recorded Not on file documented as of this encounter Progress Notes Gina Morataya, ELIAZAR - 01/04/2015 4:47 PM EDT Images from the original note were not included. Chief complaint: Chief Complaint Patient presents with ??? Neck Pain ??? Low Back Pain History of present illness:This patient is a 49 y.o. female that presents to the spine center for chronic neck pain, chronic mid back pain, chronic low back pain, new onset of right arm tingling and numbness and pain into the thumb and palm of the hand. She's had symptoms over the years and mentioned all these at her last physical in her primary care provider center here for evaluation. She's also had a number of other health problems over the years including fibromyalgia, she's had a gallbladder removal, she's had laparoscopic surgery for cystic changes on her ovaries, she's had a kidney stone removal all the last year. Her pain in her low back is about 5-10 on a scale 10 it's like a bar pain across her back burning and stabbing she gets leg pain and weakness down the lateral aspect above the knee with standing over 5minutes. Her symptoms in her arm and neck are worse with driving or driving her motorcycle. It's better with sitting worse with walking and standing. She doesn't sleep well but she also has fibromyalgia. She is clumsy but doesn't feel that she is weaker. She is only able to walk about a quarter of a mile and previously she was able to walk about a mile a day. Treatments have consisted of Motrin and chiropractics but she hasn't had physical therapy. Spine Center Response Trends Patient-reported scores: myD-H Spine Questionnaire responses 01/04/2015 VR36 - Physical Function (Range: 0-100) 24.1 VR36 - Bodily Pain (Range: 0-100) 32.2 VR36 - PCS (Range: 0-100) 34.2 VR36 - MCS (Range: 0-100) 40.8 Oswestry Disability Index (Range: 0-100) 42 Neck Disability Index (Range: 0-100) 54 (Severe disability) Past medical history: Fibromyalgia, hypercholesteremia, headache, cholecystectomy, nephrolithiasis, laparoscopic surgery for cyst removal Social and family history: He is and works as customer relations assistant. It sounds like a quite restrictive environment and she uses a headset but is still not able to get up and move around. Alcohol use is infrequent and she doesn't use tobacco. Problem List: Patient Active Problem List Diagnosis Code ??? Elevated cholesterol with elevated triglycerides E78.2 ??? Fibromyalgia M79.7 ??? Obesity E66.9 ??? Rosacea L71.9 ??? Migraines G43.909 ??? Irritable bowel syndrome K58.9 ??? Hypothyroidism E03.9 ??? Sleep apnea G47.30 ??? Raynaud's syndrome I73.00 Review of Systems: Negative for current GI, , or constitutional symptoms outside of some chronic constipation. Medications and allergies were reviewed and updated. Physical Examination: This is an obese female age 49. Her shoulders, hips, knees are developed inspection. She is left-hand dominant. She walks with a nonantalgic gait and tandem walk and single leg balance without difficulty. She has full range of motion of the cervical and lumbar spine but she has pain with facet loading in the lumbar spine which includes extension and side bending. She also has pain with Spurling's maneuver but no pain in the arm. Sensation, strength, and reflexes are all normal.SI joint dysfunction test her positive for out of 5 and significantly positive with shear testing. Dural tension signs in the lower extremity are normal. She has symmetrical reflexes that are 3 througho ut but there is no Dane or clonus and Babinski with downgoing toes. Diagnostic data: I reviewed her x-rays with her in her lumbar spine which do appear to have some facet arthropathy and lumbar spine and SI joint sclerosis. Her lumbar MRI reveals just some lower lumbardisc desiccation but no disc herniation. The cervical spine reveals several levels of cervical disc d egenerative changes with bilateral foraminal narrowing at several levels but this is from 2011 and not sufficient for current symptoms which have just started the last few months. Assessment: Problem #1 SI joint dysfunction, problem #2 facet arthropathy in the lumbar spine, problem #3 neck pain was C6 radicular symptoms Plan: I would like her to start exercising regularly and we discussed some ways to do that. She is going to see Elvia Rutledge in [facility] for physical therapy. She is also going to have an SI joint injection. She would like to try to schedule this locally and will let me know if that can be arranged otherwise will be scheduled here. Follow-up will be as needed. If she is not fully able to recover with physical therapy with Elvia Rutledge then I would recommend she begin some pool therapy this winter locally. This note was written with voice recognition software documented in this encounter Plan of Treatment Scheduled Referrals Name Type Priority Associated Diagnoses Order S chedule Referral to Pain Outpatient Referral Routine Chronic low back Ordered: Clinic pain 01/04/2015 Referral to Outpatient Referral Routine Chronic low back Orde red: Physical Therapy pain 01/04/2015 documented as of this encounter Visit Diagnoses Diagnosis Chronic low back pain Lumbago documented in this encounter Care Teams Barrel Planer Relationship Specialty Start Date End Date More Moody DO PCP - General 10/05/13 09/03/15 [address] [place] [address] documented as of this encounter
--- OUTSIDE RECORDS SUMMARY | 2021-10-23 13:53 | XMS_ITS | Encounter Summary ---
:1965 Author Organization [facility] [place] [address] Care Team Providers Name Role Phone More Moody DO Primary Care Provider Encounter Details Date Type Department Care Team Description 10/23/2013 Abstract Cardiology at [facility] Anabela Lau RN [address] [place] [address] Social History Tobacco Use Types Packs/Day Years Used Date Never Assessed Sex Assigned at Date Recorded Not on file documented as of this encounter Plan of Treatment Not on filedocumented as of this encounter Procedures Procedure Name Priority Date/Time Associated Diagnosis Comme nts TONSILLECTOMY AND Routine 09/29/2013 Results fo r this ADENOIDECTOMY procedure are in the results section . documented in this encounter Results Tonsillectomy and adenoidectomy (09/29/2013) P athologist Signature Chol, Total 279 mg/dL Triglycerides 1,109 mg/dL HDL 36 md/dL LDL Cholesterol 91 mg/dL Historical Provider GENERIC SURGICAL HISTORY documented in this encounter Visit Diagnoses Not on filedocumented in this encounter Care Teams Bradder Relationship Specialty Start Date End Date More Moody DO PCP - General 10/05/13 09/03/15 [address] [place] [address] documented as of this encounter
--- OUTSIDE RECORDS SUMMARY | 2021-10-23 13:53 | XMS_ITS | Encounter Summary ---
:1965 Author Organization [facility] [place] [address] Care Team Providers Name Role Phone Matteo Grier DO Primary Care Provider Encounter Details Date Type Department Care Team Description 04/25/2018 Telephone General Surgery at [facility] [place] [address] Social History Tobacco Use Types Packs/Day Years Used Date Former Smoker Cigarettes 0.5 20 Smokeless Tobacco: Never Used Comments: quit 16 years ago Sex Assigned at Date Recorded Not on file documented as of this encounter Miscellaneous Notes Telephone Encounter - Yane Preston - 04/25/2018 9:01 AM EST LMOM for patient to call the [facility] and let her know that she will need to complete her online registration before proceeding any further in the program. documented in this encounter Plan of Treatment Not on filedocumented as of this encounter Visit Diagnoses Not on filedocumented in this encounter Care Teams Route Sales Delivery Drivers Supervisor Relationship Specialty Start Date End Date Matteo Grier DO PCP - General Family Medicine 08/10/16 [address] [place], [place] [id number] documented as of this encounter
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
--- OUTSIDE RECORDS SUMMARY | 2021-10-23 13:53 | XMS_ITS | Encounter Summary ---
:1965 Author Organization [facility] [place] [address] Care Team Providers Name Role Phone More Moody DO Primary Care Provider Encounter Details Date Type Department Care Team Description 11/14/2013 Telephone Cardiology at [facility] Bacilio Lau Jr., MD [address] [facility] [address] A 580 [facility] [place] [address] [place] [address] (Wo rk) Social History Tobacco Use Types Packs/Day Years Used Date Former Smoker Cigarettes 0.5 20 Comments: quit 16 years ago Sex Assigned at Date Recorded Not on file documented as of this encounter Miscellaneous Notes Telephone Encounter - Aaliyah Knowles - 11/15/2013 3:11 PM EDT Pt was called and left a message that a lab slip was faxed to the [facility] lab. They were told it was a fasting lab and to be done in three weeks. Telephone Encounter - Bacilio Lau Jr., MD - 11/14/2013 12:46 PM EDT Patient called- started gemfibrozil after stopping lovastatin over the weekend- having severe muscleaches Advised to stop it and call if muscles do not feel better in 2-3 days Will check lipids in 3 weeks and decide then what to try next documented in this encounter Plan of Treatment Not on filedocumented as of this encounter Visit Diagnoses Not on filedocumented in this encounter Care Teams In Flight Refueling System Repairer Relationship Specialty Start Date End Date More Moody DO PCP - General 10/05/13 09/03/15 [address] [place] [address] documented as of this encounter
--- OUTSIDE RECORDS SUMMARY | 2021-10-23 13:53 | XMS_ITS | Encounter Summary ---
:1965 Author Organization [facility] [place] [address] Care Team Providers Name Role Phone Matteo Grier DO Primary Care Provider Reason for Referral Diagnostic Test (Routine) - Closed Specialty Diagnoses / Procedures Referred By Contact Refer red To Contact Radiology Diagnoses Low back pain, non-specific [facility] 3d [facility] Rad Mri Procedures MRI Lumbar Spine wo Contrast (Generic) [place] [address] [place] [address] Phone: Referral ID Status Reason Start Date Expiration Date Visits V isits Requested Authorized [id number] Closed Specialty 10/29/2016 12/27/2016 1 1 Service Requested Reason for Visit Diagnostic Test (Routine) - Closed Specialty Diagnoses / Procedures Referred By Contact Refer red To Contact Radiology Diagnoses Low back pain, non-specific [facility] Sp[facility] 3d [facility] Rad Mri Procedures MRI Lumbar Spine wo Contrast (Generic) [place] [address] [place] [address] Phone: Referral ID Status Reason Start Date Expiration Date Visits V isits Requested Authorized [id number] Closed Specialty 10/29/2016 12/27/2016 1 1 Service Requested Encounter Details Date Type Department Care Team Description 11/06/2016 Hospital Encounter MRI at [facility] Christopher Hinton, [facility] MD [address] non-[address] [place], [place] CENTER [address] SPINE CENTER [phone] [place] [address] Social History Tobacco Use Types Packs/Day Years Used Date Former Smoker Cigarettes 0.5 20 Smokeless Tobacco: Never Used Comments: quit 16 years ago Sex Assigned at Date Recorded Not on file documented as of this encounter Medications at Time of Discharge Medication Sig Dispensed Refills Start Date End Date minocycline (DYNACIN) 50 Take 50 mg by 0 mg Tablet mouth 2 times daily. propranolol (INDERAL) 40 Take 40 mg by 0 mg Tablet mouth 2 times daily. lovastatin (MEVACOR) 40 mg Take 40 mg by 0 Tablet mouth 2 times daily. multivitamin (THERAGRAN) Take 1 tablet by 0 Tablet mouth daily. SENNOSIDES (SENNA LAX Take 1 tablet by 0 ORAL) mouth daily. SACCHAROMYCES BOULARDII Take 1 tablet by 0 (PROBIOTIC, S.BOULARDII, mouth daily. ORAL) cholecalciferol, Vitamin Take 3 tablets by 0 D3, 5,000 unit Tablet mouth. cyanocobalamin, vitamin Take 250 mcg by 0 B-12, 250 mcg tablet mouth 2 times daily. glycopyrrolate (ROBINUL) 2 TAKE ONE TABLET BY 180 tablet 0 0 06/29/2016 09/05/2017 mg Tablet MOUTH TWICE DAILY SAVELLA 50 mg Tablet Take 50 mg by 0 11/14/2014 0 09/25/2020 mouth 2 times daily. lubiprostone (AMITIZA) 24 Take 24 mcg by 0 09/25/2020 mcg Capsule mouth 2 times daily (with meals). documented as of this encounter Plan of Treatment Not on filedocumented as of this encounter Procedures Procedure Name Priority Date/Time Associated Diagnosis Comme nts MRI LUMBAR SPINE Routine 11/06/2016 1:45 PM Low back pain, Res ults for this WITHOUT CONTRAST EDT non-specific procedure a re in the results section. documented in this encounter Results MRI Lumbar Spine wo [...] Visit Diagnoses Diagnosis Low back pain, non-specific documented in this encounter Care Teams Manager Investment Banking Relationship Specialty Start Date End Date Matteo Grier DO PCP - General Family Medicine 08/10/16 [address] [place] [address] documented as of this encounter
--- OUTSIDE RECORDS SUMMARY | 2021-10-23 13:53 | XMS_ITS | Encounter Summary ---
:1965 [place] [address] Care Team Providers Name Role Phone Matteo Grier DO Primary Care Provider Reason for Visit Reason Comments Low Back Pain Encounter Details Date Type Department Care Team Description 11/06/2016 [facility] Efrain camila k pain, Darrell HERRERA non-specific [facility] [address] [place], [place] SP[place]ENTER [id number] [place] [address] [phone] Social History Tobacco Use Types Packs/Day Years Used Date Former Smoker Cigarettes 0.5 20 Smokeless Tobacco: Never Used Comments: quit 16 years ago Sex Assigned at Date Recorded Not on file documented as of this encounter Progress Notes Christopher Hinton MD - 11/06/2016 2:20 PM EDT Talib Hauser MD [facility] [place] [address] Matteo Grier DO [address] [facility] [address] Dear Colleagues, I had the pleasure of seeing this patient at the [facility] for surgical evaluation. ?? CHIEF COMPLAINT: Back pain. ?? DIAGNOSIS: 1. Chronic back and to some degree neck pain. 2. Lumbar spondylosis. 3. T12-L1 vertebral body kyphosis, mild. ?? PRIOR TREATMENTS: SI joint injection, worked quite well. Cherrie therapy. Pain meds. ?? IMAGING: C-spine in October 2014 as well as a MRI done in March 2013 showed degenerative changes. ?? PROGNOSTIC FACTORS: BMI 37.9. Fibromyalgia. Nondiabetic. Former smoker. Not on narcotics. ?? SUMMARY AND PLAN: This patient returns to clinic. MRI not read yet but reviewed with NR. Bone signalchanges but No specific red flag. Rec FRP program. Zuleyma saw patient. All questions answered. No indication for surgical mgt. ?? Past medical history, past surgical, medications, allergies, social and family history were updated in eD-H. Of note, past medical history noted for fibromyalgia, obesity, migraines, irritable bowel syndrome, hypothyroidism, Raynaud's syndrome, and sleep apnea. ?? No prior spine surgery. ?? FAMILY HISTORY: Noncontributory. ?? SOCIAL HISTORY: Former smoker. ?? ALLERGIES: LATEX, TYLENOL WITH CODEINE. ?? MEDICATIONS: See eDH ?? PHYSICAL EXAMINATION: Alert and oriented female. Affect is within normal limits. Neurologically intact. 5/5 strength in bilateral lower extremities. Negative straight leg raise. No pain with rotation of her hips. Overall alignment is excellent. No evidence of significant scoliosis. Skin intact. ?? PLAN: As outlined above. Sincerely, Christopher Hinton MD MS Proctologist - Orthopedic Spine Surgery / Spine Center Otolaryngology Surgeon - Department of Orthopedic Surgery / Academics and Research Content Publisher - [facility] 11/06/2016 Spine Center Response Trends Patient-reported scores: [facility] Spine Questionnaire responses 01/04/2015 11/06/2016 VR36 - Physical Function (Range: 0-100) 24.1 - VR36 - Bodily Pain (Range: 0-100) 32.2 - VR36 - PCS (Range: 0-100) 34.2 - VR36 - MCS (Range: 0-100) 40.8 - Oswestry Disability Index (Range: 0-100) 42 38 (Moderate disability) Neck Disability Index (Range: 0-100) 54 (Severe disability) - PROMIS-10 Physical Health Score - 34.9 PROMIS-10 Mental Health Score - 38.8 documented in this encounter Plan of Treatment Not on filedocumented as of this encounter Visit Diagnoses Diagnosis Low back pain, non-specific documented in this encounter Care Teams Career Development Manager Relationship Specialty Start Date End Date Matteo Grier DO PCP - General Family Medicine 08/10/16 [address] [place] [address] documented as of this encounter
--- OUTSIDE RECORDS SUMMARY | 2021-10-23 13:53 | XMS_ITS | Encounter Summary ---
:1965 Author Organization [facility] [place] [address] Care Team Providers Name Role Phone Ruddy Lima DO, David Primary Care Provider Reason for Visit Reason Comments Medication Refill Encounter Details Date Type Department Care Team Description 06/28/[address] [facility] es Garza, Maldonado Howell MD 580 [facility] [address] [place] [address] DERMATOLOGY [phone] [place], [place] [address] (Wo rk) Social History Tobacco Use Types Packs/Day Years Used Date Former Smoker Cigarettes 0.5 20 Comments: quit 16 years ago Sex Assigned at Date Recorded Not on file documented as of this encounter Plan of Treatment Not on filedocumented as of this encounter Visit Diagnoses Not on filedocumented in this encounter Care Teams Agronomy Teacher Relationship Specialty Start Date End Date Alfredo Fox DO PCP - General General Internal Medicine 09/04/15 08/09/16 documented as of this encounter
--- OUTSIDE RECORDS SUMMARY | 2021-10-23 13:53 | XMS_ITS | Encounter Summary ---
:1965 Author Organization [facility] [place] [address] Care Team Providers Name Role Phone More Moody DO Primary Care Provider Encounter Details Date Type Department Care Team Description 12/28/2013 Telephone Cardiology at [facility] Bacilio Lau Jr., MD 580 [facility] [address] A 580 [facility] [place] [address] [place], [place] [id number] (Wo rk) Social History Tobacco Use Types Packs/Day Years Used Date Former Smoker Cigarettes 0.5 20 Comments: quit 16 years ago Sex Assigned at Date Recorded Not on file documented as of this encounter Miscellaneous Notes Telephone Encounter - Laurie Khan RN - 01/03/2014 4:57 PM EDT Patient returned call, gave her Dr. Borja instructions, she requested [facility] script [facility] to [facility]. Telephone Encounter - Laurie Khan RN - 01/03/2014 3:18 PM EDT Called and left another message to call us back. Telephone Encounter - Anabela Lau RN - 01/01/2014 10:49 AM EDT Left message for pt to call us back. Telephone Encounter - Laurie Khan RN - 12/28/2013 10:31 AM EDT Attempted to call patient, no answer/no machine. Medication list updated. Telephone Encounter - Bacilio Lau Jr., MD - 12/28/2013 10:24 AM EDT Have her resume lovastatin as she was taking it before Telephone Encounter - Aaliyah Knowles - 12/28/2013 9:26 AM EDT Pt called stating that she can not take the Lipitor as it makes her Fibromyalgia worse and a lot of pain. Pt can be reached at [phone]. documented in this encounter Plan of Treatment Not on filedocumented as of this encounter Visit Diagnoses Diagnosis Hypertriglyceridemia - Primary Pure hyperglyceridemia documented in this encounter Care Teams Custom Feed Mill Operator Relationship Specialty Start Date End Date More Moody DO PCP - General 10/05/13 09/03/[address] [place] [address] documented as of this encounter
--- OUTSIDE RECORDS SUMMARY | 2021-10-23 13:53 | XMS_ITS | Encounter Summary ---
:1965 Author Organization [facility] [address] Care Team Providers Name Role Phone HeidyMore Primary Care Provider Encounter Details Date Type Department Care Team Description 12/08/2013 Telephone Cardiology at [facility] Bacilio Lau Jr., MD 580 [facility] [address] A 580 [facility] [place] [address] [place] [address] (Wo rk) Social History Tobacco Use Types Packs/Day Years Used Date Former Smoker Cigarettes 0.5 20 Comments: quit 16 years ago Sex Assigned at Date Recorded Not on file documented as of this encounter Miscellaneous Notes Telephone Encounter - Laurie Khan RN - 12/08/2013 4:05 PM EDT Please refer to phone note on 11/21/13. documented in this encounter Plan of Treatment Not on filedocumented as of this encounter Procedures Procedure Name Priority Date/Time Associated Diagnosis Comme nts EXTERNAL LAB RESULTS Routine 12/08/2013 Results for this procedure are i n the results section . documented in this encounter Results External Lab Results (12/08/2013) P athologist Signature Chol, Total 312 mg/dL Triglycerides 1,529 mg/dL HDL 34 md/dL LDL Cholesterol 108 mg/dL Historical Provider CHEMISTRY ORDERABLES documented in this encounter Visit Diagnoses Not on filedocumented in this encounter Care Teams Mat Cleaning Machine Operator Relationship Specialty Start Date End Date More Moody DO PCP - General 10/05/13 09/03/15 [address] [place] [address] documented as of this encounter
--- OUTSIDE RECORDS SUMMARY | 2021-10-23 13:53 | XMS_ITS | Encounter Summary ---
:1965 Author Organization [facility] [place] [address] Care Team Providers Name Role Phone Ruddy Lima DO, David Primary Care Provider Reason for Visit Reason Comments Medication Refill Encounter Details Date Type Department Care Team Description 12/23/2015 Refill Dermatology at [facility] es Garza, Maldonado Howell MD 580 [facility] [address] 580 [place] [address] DERMATOLOGY [phone] [place], [place] [address] (Wo rk) Social History Tobacco Use Types Packs/Day Years Used Date Former Smoker Cigarettes 0.5 20 Comments: quit 16 years ago Sex Assigned at Date Recorded Not on file documented as of this encounter Plan of Treatment Not on filedocumented as of this encounter Visit Diagnoses Not on filedocumented in this encounter Care Teams Concrete Carpenter Relationship Specialty Start Date End Date Alfredo Fox DO PCP - General General Internal Medicine 09/04/15 08/09/16 documented as of this encounter
--- OUTSIDE RECORDS SUMMARY | 2021-10-23 13:53 | XMS_ITS | Encounter Summary ---
:1965 [place] [address] Care Team Providers Name Role Phone MoodyMore DO Primary Care Provider Encounter Details Date Type Department Care Team Description 01/10/2015 Telephone Pain Management at [facility] [place], [place] [address] Social History Tobacco Use Types Packs/Day Years Used Date Former Smoker Cigarettes 0.5 20 Comments: quit 16 years ago Sex Assigned at Date Recorded Not on file documented as of this encounter Miscellaneous Notes Telephone Encounter - Angelina Jeffries, RN - 01/10/2015 12:35 PM EST More Monique :1965 Message left: I left a message on answering machine Ms. Monique at 12:35 PM regarding her upcoming Bilateral SI joint injection with Dr. Wilner Paredes MD. Message included the followin. Patient instructed to arrive at 2:45 (30 minutes prior to procedure start time) on 01/11/15 (date of procedure) with their speedboat driver. 2. Following instructions left in the message: - Bring Updated list of medications including dosage and reason for taking. - Call the Pain Clinic Nurse at for: ~Procedure instructions. ~If you are taking antibiotics. ~If you have any signs or symptoms of infection, cold or flu. ~If you have any skin breakdown (rashes, cysts, or abscess.) ~If you are taking anticoagulants / blood thinners (Plavix, Pletal, Lovenox, Coumadin, etc). ~If you had any steroid injections anywhere in your body within the last two weeks? Angelina Jeffries RN documented in this encounter Plan of Treatment Not on filedocumented as of this encounter Visit Diagnoses Not on filedocumented in this encounter Care Teams Director Of Psychology Relationship Specialty Start Date End Date More Moody DO PCP - General 10/05/13 09/03/[address] [place] [address] documented as of this encounter
--- OUTSIDE RECORDS SUMMARY | 2021-10-23 13:53 | XMS_ITS | Encounter Summary ---
:1965 Author Organization [facility] [place] [address] Care Team Providers Name Role Phone Janie Moodyhlgloria NUNEZ Primary Care Provider Encounter Details Date Type Department Care Team Description 10/10/2014 Hospital Encounter Radiology Library at [facility], [place] [address] Social History Tobacco Use Types Packs/Day Years Used Date Former Smoker Cigarettes 0.5 20 Comments: quit 16 years ago Sex Assigned at Date Recorded Not on file documented as of this encounter Medications at Time of Discharge Medication Sig Dispensed Refills Start Date End Date cyanocobalamin, vitamin Take 250 mcg by 0 B-12, 250 mcg tablet mouth 2 times daily. lovastatin (MEVACOR) 40 mg Take 1 tablet by 180 tablet 4 01/04/2015 TabletIndications: mouth 2 times Hypertriglyceridemia daily. propranolol (INDERAL) 40 mg Take 40 mg by 0 01/04/2015 tablet mouth 2 times daily. minocycline Take 50 mg by 0 01/04/2015 (MINOCIN;DYNACIN) 50 mg mouth 2 times capsule daily. cyclobenzaprine (FLEXERIL) 5 Take 5 mg by 0 01/04/2015 mg tablet mouth 2 times daily as needed. traMADol (ULTRAM) 50 mg Take 50 mg by 0 01/04/2015 tablet mouth 2 times daily as needed. senna (SENOKOT) 8.6 mg Take 3 tablets 0 01/04/2015 tablet by mouth daily as needed. lubiprostone (AMITIZA) 24 Take 24 mcg by 0 01/04/2015 mcg capsule mouth 2 times daily (with meals). mometasone (ELOCON) 0.1 % Apply topically 0 01/04/2015 cream daily. desoximetasone (TOPICORT) Apply topically. 0 01/04/2015 0.25 % cream As directed by PCP levothyroxine (SYNTHROID) 25 Take 25 mcg by 0 09/09/2016 mcg tablet mouth daily. lactobacillus (BACID) tablet Take 1 tablet by 0 01/04/2015 mouth daily. documented as of this encounter Plan of Treatment Not on filedocumented as of this encounter Procedures Procedure Name Priority Date/Time Associated Diagnosis Comme nts FILM LIBRARY Routine 10/10/2014 12:00 AM Pain Results for this STORAGE ONLY DX EDT procedure ar e in SPINE the results section. documented in this encounter Results Film Library- Storage only DX Spine (10/10/2014 12:00 AM EDT) Specimen (Source) Anatomical Location Collection Method / Collectio n Time Received Time / Laterality Volume Narrative [facility] - 01/02/2015 1:24 PM EDT See PACS for result report. Dr Rodriguez [facility] FILM LIBRARY ORDERABLES Performing Organization Address City/State/ZIP Code Phon e Number [place], [place] documented in this encounter Visit Diagnoses Diagnosis Pain Generalized pain documented in this encounter Care Teams Life Teacher Relationship Specialty Start Date End Date More Moody DO PCP - General 10/05/13 09/03/15 [address] [place] [address] documented as of this encounter
--- OUTSIDE RECORDS SUMMARY | 2021-10-23 13:53 | XMS_ITS | Encounter Summary ---
:1965 Author Organization [facility] [place] [address] Care Team Providers Name Role Phone Matteo Grier DO Primary Care Provider Reason for Visit Reason Comments Medication Refill Encounter Details Date Type Department Care Team Description 12/29/2014 Refill Cardiology at [facility] Bacilio Lau Jr., MD Medication Refill 580 [facility] A 580 [place] [address] A [phone] [place], [place] [address] (Wo rk) Social History Tobacco Use Types Packs/Day Years Used Date Former Smoker Cigarettes 0.5 20 Comments: quit 16 years ago Sex Assigned at Date Recorded Not on file documented as of this encounter Plan of Treatment Not on filedocumented as of this encounter Visit Diagnoses Not on filedocumented in this encounter Care Teams Battery Vent Plug Inserter Relationship Specialty Start Date End Date Matteo Grier DO PCP - General Family Medicine 08/10/16 [address] [place], [place] [id number] documented as of this encounter
--- OUTSIDE RECORDS SUMMARY | 2021-10-23 13:53 | XMS_ITS | Encounter Summary ---
:1965 Author Organization [facility] [place] [address] Care Team Providers Name Role Phone Matteo Grier DO Primary Care Provider Reason for Visit Reason Comments Medication Refill Encounter Details Date Type Department Care Team Description 01/26/2016 Refill Dermatology at [facility] es Garza, Maldonado Howell MD 580 [facility] [address] [place] [address] DERMATOLOGY [phone] [place], [place] [address] (Wo rk) Social History Tobacco Use Types Packs/Day Years Used Date Former Smoker Cigarettes 0.5 20 Comments: quit 16 years ago Sex Assigned at Date Recorded Not on file documented as of this encounter Plan of Treatment Not on filedocumented as of this encounter Visit Diagnoses Not on filedocumented in this encounter Care Teams Signal Timer Relationship Specialty Start Date End Date Matteo Grier DO PCP - General Family Medicine 08/10/16 580 [place], [place] [id number] documented as of this encounter
--- OUTSIDE RECORDS SUMMARY | 2021-10-23 13:53 | XMS_ITS | Encounter Summary ---
:1965 Author Organization [place] [address] Care Team Providers Name Role Phone HeidyJessicaMore DO Primary Care Provider Encounter Details Date Type Department Care Team Description 02/08/2014 Telephone Cardiology at [facility] Bacilio Lau Jr., MD [address] [facility] Ceferino A [address] [facility] [place] [address] [place], [place] [id number] (Wo rk) Social History Tobacco Use Types Packs/Day Years Used Date Former Smoker Cigarettes 0.5 20 Comments: quit 16 years ago Sex Assigned at Date Recorded Not on file documented as of this encounter Miscellaneous Notes Telephone Encounter - Bacilio Lau Jr., MD - 02/08/2014 9:26 AM EST ok Telephone Encounter - Aaliyah Knowles - 02/08/2014 8:01 AM EST FYI Pt called cancelling her appt for 02/09/14 at the [facility]. Pt said she doesn't need to see us as she feels that her PCP is treating her with the meds at this time and did not want to reschedule. She will call us at a later time if she feels she needs to see us. documented in this encounter Plan of Treatment Not on filedocumented as of this encounter Visit Diagnoses Not on filedocumented in this encounter Care Teams Tin Can Feeder Relationship Specialty Start Date End Date More Moody DO PCP - General 10/05/13 09/03/15 [address] [place] [address] documented as of this encounter
--- OUTSIDE RECORDS SUMMARY | 2021-10-23 13:53 | XMS_ITS | Clinical Summary ---
:1965 Author Organization [facility] [place] [address] Care Team Providers Name Role Phone Matteo Grier DO Primary Care Provider Allergies Active Allergy Reactions Severity Noted Date Comments Cis Free Text Allergy grass, tree, dust. CIS - positive skin test Codeine Phosphate Medium 07/22/2017 Gloves, Latex CIS - positive skin test Grass Pollen Medium 07/22/2017 Pregabalin Medium 07/22/2017 Tree And Shrub Pollen Medium 07/22/2017 Acetaminophen-Codeine 10/25/2015 Medications Medication Sig Dispensed Refills Start Date End Date Status cyanocobalamin, Take 250 mcg by 0 Active vitamin B-12, 250 mcg mouth 2 times tablet daily. minocycline (DYNACIN) Take 50 mg by 0 Active 50 mg Tablet mouth 2 times daily. propranolol (INDERAL) Take 40 mg by 0 Active 40 mg Tablet mouth 2 times daily. lovastatin (MEVACOR) Take 40 mg by 0 Active 40 mg Tablet mouth 2 times daily. multivitamin Take 1 tablet by 0 Active (THERAGRAN) Tablet mouth daily. SENNOSIDES (SENNA LAX Take 1 tablet by 0 Active ORAL) mouth daily. SACCHAROMYCES Take 1 tablet by 0 Active BOULARDII (PROBIOTIC, mouth daily. S.BOULARDII, ORAL) cholecalciferol, Take 3 tablets by 0 Active Vitamin D3, 5,000 unit mouth. Tablet glycopyrrolate TAKE 1 TABLET 180 tablet 4 09/06/2017 Active (ROBINUL) 2 mg Tablet TWICE A DAY amitriptyline (Elavil) 50 mg nightly. 0 08/24/2020 Active 50 mg Tablet desoximetasone Apply topically 2 0 04/19/2017 Active (Topicort LP) 0.05 % times daily as Ointment needed. famotidine (Pepcid) 20 20 mg 2 times 0 08/31/2020 Active mg Tablet daily as needed. ibuprofen (Advil) 200 Take 200 mg by 0 04/19/2017 Active mg Tablet mouth as needed. Lactobacillus Take by mouth 0 04/19/2017 A ctive Acidophilus 100 daily. million cell Capsule loratadine 10 mg Take 10 mg by 0 04/19/2017 Active Capsule mouth daily. mometasone (ELOCON) Apply topically 0 04/19/2017 Active 0.1 % Cream as needed. Riboflavin 25 mg Take 25 mg by 0 04/19/2017 Active Tablet mouth daily. SUMAtriptan (Imitrex) 100 mg as needed. 0 08/24/2020 Active 100 mg Tablet magnesium Take by mouth. 0 04/19/2017 Acti ve oxide,aspartate,citr 400 mg magnesium Capsule riboflavin, Vitamin Take 100 mg by 0 Active B2, (Vitamin B2) 100 mouth daily. 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 Nevus 10/25/2015 Chronic low back pain 01/04/2015 Elevated cholesterol with elevated triglycerides 10/23 Fibromyalgia 10/23/2013 Obesity 10/23/2013 Rosacea 10/23/2013 Migraines 10/23/2013 Irritable bowel syndrome 10/23/2013 Hypothyroidism 10/23/2013 Sleep apnea 10/23/2013 Overview: On CPAP Raynaud's syndrome 10/23/2013 Family History Medical History Relation Comments Hyperlipidemia Father Diabetes Maternal Aunt Asthma Mother Diabetes Paternal Grandfather Relation Status Comments Father Alive Maternal Aunt Alive Mother Alive Paternal Grandfather Social History Tobacco Use Types Packs/Day Years Used Date Former Smoker Cigarettes 0.5 20 Smokeless Tobacco: Never Used Comments: quit 16 years ago Sex Assigned at Date Recorded Not on file Last Filed Vital Signs Vital Sign Reading Time Taken Comments Blood Pressure 168/92 09/25/2020 1:50 PM EDT Pulse 69 09/25/2020 1:50 PM EDT Temperature - - Respiratory Rate 18 01/11/2015 3:00 PM EST Oxygen Saturation 98% 09/25/2020 1:50 PM EDT Inhaled Oxygen Concentration - - Weight 117.9 kg (260 lb) 09/25/2020 1:50 PM EDT Height 156.2 cm (5' 1.5) 09/25/2020 1:50 PM EDT Body Mass Index 48.33 09/25/2020 1:50 PM EDT Plan of Treatment Health Maintenance Due Date Last Done Comments Covid-19 Vaccine (#1) 1972 HIV screen 1985 Hepatitis C Screening 1985 Tdap adult 1986 Tetanus vaccine 1986 HPV test 1997 PAP Smear 1997 Breast Cancer Share Decision Needed 2007 Diabetes Screening (HgbA1C or Glucose) 2007 Colonoscopy 2012 Breast Cancer screening 2017 Zoster vaccine (1 of 2) 2017 Influenza (Flu) vaccine (1 of 1 - Influenza standard 11/06/2021 series) Insurance Payer Benefit Plan / Subscriber ID Effective Dates Phone Addre ss Type Group [facility] [id number] 2020-Presen [phone] [address] HEALTH[place] t [address] [facility] [phone] Care Teams Body Mechanic Apprentice Relationship Specialty Start Date End Date Matteo Grier, DO PCP - General Family Medicine 08/10/16 [address] [place], [place] [id number]
--- OUTSIDE RECORDS SUMMARY | 2021-10-23 13:53 | XMS_ITS | Encounter Summary ---
:1965 Author Organization [facility] [place] [address] Care Team Providers Name Role Phone Matteo Grier DO Primary Care Provider Reason for Visit Reason Comments Low Back Pain radiates to bilateral hips, butt legs worse on LEFT Consultation (Routine) - Closed Specialty Diagnoses / Procedures Referred By Contact Refer red To Contact Orthopaedics Diagnoses Multilevel degenerative disc disease Multilevel degenerative disc disease. Matteo Grier, DO [facility] Procedures Multilevel DDD and SI joint pain. [address] [place] [address] [place] [address] Phone: Referral ID Status Reason Start Date Expiration Date Visits V isits Requested Authorized [id number] Closed Consult, Test 08/10/2016 08/10/2017 6 [facility] PCP Updated and/or Approved Encounter Details Date Type Department Care Team Description 09/09/2016 Office Visit Spine Center at [facility], Efrain Allen camila k pain, non-specific; Darrell HERRERA Chronic bilateral low back pain without sciatica [facility] [address] [place], [place] [facility] [address] [place] [address] Social History Tobacco Use Types Packs/Day Years Used Date Former Smoker Cigarettes 0.5 20 Comments: quit 16 years ago Sex Assigned at Date Recorded Not on file documented as of this encounter Last Filed Vital Signs Vital Sign Reading Time Taken Comments Blood Pressure - - Pulse - - Temperature - - Respiratory Rate - - Oxygen Saturation - - Inhaled Oxygen Concentration - - Weight 95.3 kg (210 lb) 09/09/2016 10:21 AM EDT Height 158.8 cm (5' 2.5) 09/09/2016 10:21 AM EDT Body Mass Index 37.8 09/09/2016 10:21 AM EDT documented in this encounter Progress Notes Christopher Hinton MD - 09/09/2016 10:40 AM EDT Matteo Grier, DO [address] [place] [address] Dear Colleagues, I had the pleasure of seeing this patient at the [facility] for surgical evaluation. CHIEF COMPLAINT: Back pain. DIAGNOSIS: 1. Chronic back and to some degree neck pain. 2. Lumbar spondylosis. 3. T12-L1 vertebral body kyphosis, mild. PRIOR TREATMENTS: SI joint injection, worked quite well. Cherrie therapy. Pain meds. IMAGING: C-spine in October 2014 as well as a MRI done in March 2013 showed degenerative changes. PROGNOSTIC FACTORS: BMI 37.9. Fibromyalgia. Nondiabetic. Former smoker. Not on narcotics. SUMMARY AND PLAN: This is a patient with chronic back. Given the MR of the lumbar spine and given her persistent symptoms, evaluation, and back pain, continue work up for SI joint as well diffuse lumbar spondylosis. She also may be a candidate for our Functional Voodoo Program. Past medical history, past surgical, medications, allergies, social and family history were updated in eD-H. Of note, past medical history noted for fibromyalgia, obesity, migraines, irritable bowel syndrome, hypothyroidism, Raynaud's syndrome, and sleep apnea. No prior spine surgery. FAMILY HISTORY: Noncontributory. SOCIAL HISTORY: Former smoker. ALLERGIES: LATEX, TYLENOL WITH CODEINE. MEDICATIONS: See eDH PHYSICAL EXAMINATION: Alert and oriented female. Affect is within normal limits. Neurologically intact. 5/5 strength in bilateral lower extremities. Negative straight leg raise. No pain with rotation of her hips. Overall alignment is excellent. No evidence of significant scoliosis. Skin intact. PLAN: As outlined above. Sincerely, Christopher Hinton MD MS Cold Roll Operator - Orthopedic Spine Surgery / Spine Center Lapping Machine Operator - Department of Orthopedic Surgery / [employer] Rib Puller - [facility] 09/15/2016 Spine Center Response Trends Patient-reported scores: myD-H Spine Questionnaire responses 01/04/2015 VR36 - Physical Function (Range: 0-100) 24.1 VR36 - Bodily Pain (Range: 0-100) 32.2 VR36 - PCS (Range: 0-100) 34.2 VR36 - MCS (Range: 0-100) 40.8 Oswestry Disability Index (Range: 0-100) 42 Neck Disability Index (Range: 0-100) 54 (Severe disability) documented in this encounter Plan of Treatment Not on filedocumented as of this encounter Visit Diagnoses Diagnosis Low back pain, non-specific Chronic bilateral low back pain without sciatica documented in this encounter Care Teams Pinion Staker Relationship Specialty Start Date End Date Matteo Grier DO PCP - General Family Medicine 08/10/16 [address] [place] [address] documented as of this encounter
--- OUTSIDE RECORDS SUMMARY | 2021-10-23 13:53 | XMS_ITS | Encounter Summary ---
:1965 Author Organization [facility] [place] [address] Care Team Providers Name Role Phone More Moody DO Primary Care Provider Reason for Referral Surgical (Routine) - Specialty Diagnoses / Procedures Referred By Contact Refer red To Contact Pain Management Diagnoses Inflammation of sacroiliac joint Chico Rodriguez, [facility] Mso Pain Procedures SI JOINT INJECTION DO Clinics [facility] [address] [address] Phone: Fax: Referral ID Status Reason Start Date Expiration Date Visits V isits Requested Authorized [id number] Consult, 01/11/2015 01/11/2016 1 1 Test & Treat Reason for Visit Reason Comments Back Pain Consultation (Routine) - Closed Specialty Diagnoses / Procedures Referred By Contact Refer red To Contact Pain Management Diagnoses Chronic low back pain Gina Morataya, ELECTRICAL ELECTRONICS TECHNICIAN [facility] Mso Pain Clinics Procedures PRO INJECTION, SACROILIAC JOINT [facility] PAIN MEDICINE [place], [place] [id number] [place] [phone] Fax: Referral ID Status Reason Start Date Expiration Date Visits V isits Requested Authorized [id number] Closed Consult, 01/04/2015 01/04/2016 1 1 Test & Treat Encounter Details Date Type Department Care Team Description 01/11/2015 Procedure visit Pain Management at [facility] [place] [place] Wilner Howell MD sacroiliac joint [facility] [address], [place] [facility] [address] [place] [address] [phone] Social History Tobacco Use Types Packs/Day Years Used Date Former Smoker Cigarettes 0.5 20 Comments: quit 16 years ago Sex Assigned at Date Recorded Not on file documented as of this encounter Last Filed Vital Signs Vital Sign Reading Time Taken Comments Blood Pressure 132/97 01/11/2015 3:00 PM EST Pulse 67 01/11/2015 3:00 PM EST Temperature - - Respiratory Rate 18 01/11/2015 3:00 PM EST Oxygen Saturation 96% 01/11/2015 3:00 PM EST Inhaled Oxygen Concentration - - Weight 99.8 kg (220 lb) 01/11/2015 2:55 PM EST Height 160 cm (5' 3) 01/11/2015 2:55 PM EST Body Mass Index 38.97 01/11/2015 2:55 PM EST documented in this encounter Patient Instructions Patient InstructionsKiya Swift, MONEY ROOM TELLER - 01/11/2015 3:21 PM EST Pain Management Center Discharge Instructions: You were seen by Dr. Wilner Paredes MD and Chico Rodriguez DO who performed Donnell. SI joint injection. It is normal that the injection site will be sore for up to 48 hours. You may also experience mild stiffness in the joint near the injection site. [x] You may resume your normal activities: tomorrow. You may shower today. DO NOT tub bathe, use whirlpools, hot tubs or pool therapy for 2 days. Remove Band-Aid(s) later today/tomorrow. Do not drive until tomorrow. Use caution walking/climbing stairs as you may be unsteady on your feet. You may use your usual medications, including pain medications, as directed, unless otherwise instructed. You may use an ice pack as needed for the first 24 hours, on for 20 minutes then off for 20 minutes.Do not apply heat today. Attempt to empty your bladder 4-6 hours after your procedure. You received the following medications: Depo-Medrol 80 mg, Lidocaine and Omnipaque (contrast dye). During regular business hours, please phone the Pain Management Center at for appointments or with any questions or if the following or other troubling symptoms develop: 1) Prolonged dizziness or weakness (more than 1 day). 2) Localized swelling, redness or drainage at the injection site(s). 3) Temperature of 101 degrees that lasts for more than 4 hours. After 5 PM or on weekends, call and ask for Pain Clinic provider on-call. If you are unable to reach the Pain Management Center and have a complication, please call your Primary Care Provider or proceed to your local emergency department. Kiya Swift LPN Special instructions documented in this encounter Progress Notes Wilner Paredes MD - 01/15/2015 11:44 AM EST I was the attending physician supervising the resident in the above care and I was present with the resident for the entire procedure. Wilner Paredes MD, MS Kiya Swift LPN - 01/11/2015 2:55 PM EST Pre-Procedure Screening Questions: 1. Status: No 2. 3. Patient states they have a emergency detail driver to transport after procedure? Yes 4. Patient taking antibiotics at present? No 5. NPO per Pain Management Center protocol? No 6. 7. Patient diabetic: No __ borderline (not treated with medications) __ managed with oral medications __ managed with injected medications 8. Patient routinely taking anticoagulants ? No Date stopped Current INR Patient Vital Signs documented in Doc Flowsheets associated with this encounter. Patient Discharge Instructions were reviewed with patient and copy provided to patient. documented in this encounter Procedure Notes Chico Rodriguez DO - 01/11/2015 2:49 PM ESTAssociated Order(s): SI JOINT INJECTION Pre-Procedure Diagnose(s): Inflammation of sacroiliac joint INTRA-ARTICULAR SI JOINT INJECTION Date of Service: 01/11/2015 Patient: More Monique Provider: CHICO RODRIGUEZ DO More Monique has been referred to the Pain Management Center for intra- articular SI joint injection. Chief Complaint:: bilateral low back, buttock pain More Monique was interviewed and the medical record reviewed. There were no medical, pharmacologic, radiographic or other structural contraindications to attempting fluoroscopically guided intra-articular SI joint injection. Risks and expected side effects as well as potential benefit of the procedure were reviewed with More Monique, and she voiced concerns addressed. The printed consent form wassigned and witnessed. Standard time-out procedure was performed. More Monique was placed in the prone position on the fluoroscopy table and automated blood pressure cuff and pulse oximeter applied. The skin entry point for approaching bilateral SI joints was identified under the most advantageous fluoroscopic view and marked. Following thorough Chlorhexadine preparation of the skin and draping and 1% lidocaine infiltration of the skin entry point and subcutaneous tissues, a 22 gauge spinal needle was placed under fluoroscopic guidance into bilateral SI joint. Intra-articular placement was confirmed by a clear arthrogram resulting from the injectionof 0.25ml Omnipaque 240. Next, 2.5cc mixture of 80mg (40mg/ml) Depomedrol and 3ml 0.5% Bupivicaine, was injected into each joint with an initial reproduction of a significant component of the usual pain. More Alexanders vital signs were stable throughout the procedure and were as recorded in the docflowsheet by the nursing staff. Follow up plans and appointments were discussed with the Ms. Monique. Post procedure instruction was given as documented in nursing documentation and having met discharge criteria, she was discharged from the Pain Management Center. COMMENTS: She will follow up with Gina Warner APRN documented in this encounter Plan of Treatment Not on filedocumented as of this encounter Procedures Procedure Name Priority Date/Time Associated Diagnosis Comme nts SI JOINT INJECTION Routine 01/11/2015 3:26 PM Inflammation of Results for this EST sacroiliac joint procedure a re in the results section. documented in this encounter Results SI JOINT INJECTION (01/11/2015 3:26 PM EST) Narrative Chico Rodriguez DO - 01/11/2015 3 :26 PM EST Chico Rodriguez, DO ? 01/11/2015 ??3:26 PM INTRA-ARTICULAR SI JOINT INJECTION Date of Service: ??01/11/2015 Patient: ??More Monique ?? [id number] Provider: ??CHICO RODRIGUEZ DO More Monique has been referred to the Pain Management Center for intra-articular SI joint injection. ?? Chief Complaint:: bilateral low back, bu ttock pain More Monique was interviewed and the m edical record reviewed. ?? There were no medical, pharmacologic, ra diographic or other structural contraindications to attempti ng fluoroscopically guided intra-articular SI joint injectio n. ??Risks and expected side effects as well as potential benefi t of the procedure were reviewed with More Monique, and she vo iced concerns addressed. ?? The printed consent form was signed and witnessed. ??Standard time-out procedure was performed. More Monique was placed in the prone p osition on the fluoroscopy table and automated blood pr essure cuff and pulse oximeter applied. ??The skin entry point for approaching bilateral SI joints was identified under the most advantageous fluoroscopic view and marked. ??Following thorough Ch lorhexadine preparation of the skin and draping and 1% lidocaine in filtration of the skin entry point and subcutaneous tissues, a 22 gauge spinal needle was placed under fluoroscopic guidance i nto bilateral SI joint. ??Intra-articular placement wa s confirmed by a clear arthrogram resulting from the injection of 0.25ml Omnipaque 240. Next, 2.5cc mixture of 80mg (40mg/ml) De pomedrol and 3ml 0.5% Bupivicaine, was injected into each join t with an initial reproduction of a significant component of the usual pain. More Alexanders vital signs were stable throughout the procedure and were as recorded in the docflowsheet by the nursing staff. Follow up plans and appointments were di scussed with the Ms. Monique. ??Post procedure instruction was given as documented in nursing documentation and having met dis charge criteria, she was discharged from the Pain Management Cent er. COMMENTS: She will follow up with Annie Warner APRN Wilner Paredes MD PROCEDURE/MINOR SURGICAL ORD ERABLES documented in this encounter Visit Diagnoses Diagnosis Inflammation of sacroiliac joint Sacroiliitis, not elsewhere classified documented in this encounter Administered Medications Inactive Administered Medications - up to 3 most recent administrations Medication Order MAR Action Action Date Dose Rate Site BUpivacaine (PF) (MARCAINE) 0.5 % Given 01/11/2015 3:15 PM EST 1 5 mg (5 mg/mL) injection 10 mg 10 mg (2 mL), Intra-articular, ONCE, 1 dose, On Wed01/11/15 at 1515, Wasted 28 mL, Routine iohexol (OMNIPAQUE) 240 mg/mL solution 2 mL Given 01/11/2015 3:15 PM EST 1 mL 2 mL, Other, ONCE, 1 dose, On Wed01/11/15 at 1515, Wasted 48 mL, Routine methylPREDNISolone acetate (depo-MEDROL) Given 01/11/2015 3:15 P M EST 80 mg injection 80 mg 80 mg, Intra-articular, ONCE, 1 dose, On Wed01/11/15 at 1515, Routine documented in this encounter Care Teams Well Driller Helper Relationship Specialty Start Date End Date More Moody DO PCP - General 10/05/13 09/03/[address] [place] [id number] documented as of this encounter
--- OUTSIDE RECORDS SUMMARY | 2021-10-23 13:54 | XMS_ITS | Encounter Summary ---
:1965 Author Organization [facility] [place] [address] Care Team Providers Name Role Phone Adamaris Lima APRN, Nicole Primary Care Provider [phone] Encounter Details Date Type Department Care Team Description 09/28/2013 Ancillary Appointment [facility] Bacilio Lau Jr., [facility] [address] [facility] . [address] [place], [place] [address] [place], [place] [id number] (Wo rk) Social History Tobacco Use Types Packs/Day Years Used Date Never Assessed Sex Assigned at Date Recorded Not on file documented as of this encounter Plan of Treatment Not on filedocumented as of this encounter Visit Diagnoses Not on filedocumented in this encounter Care Teams [employer] Certified Network Professional Relationship Specialty Start Date End Date Joanie Bailon APRN PCP - General 01/28/10 10/04/13 documented as of this encounter
--- OUTSIDE RECORDS SUMMARY | 2021-10-23 13:54 | XMS_ITS | Encounter Summary ---
:1965 Author Organization [facility] [place] [address] Care Team Providers Name Role Phone Adamaris Lima APRN, Nicole Primary Care Provider [phone] Encounter Details Date Type Department Care Team Description 10/12/2012 [place] En[place] [facility] [place] [address] Social History Tobacco Use Types Packs/Day Years Used Date Never Assessed Sex Assigned at Date Recorded Not on file documented as of this encounter Medications at Time of Discharge Medication Sig Dispensed Refills Start Date End Date CIS Free Text Med - Reverse Vitamins 0 05/30/2009 10/23/2013 LOVASTATIN ORAL 0 05/30/2009 4 propranolol (INDERAL) 40 mg tablet 0 0 05/30/2009 10/23/2013 MINOCYCLINE HCL (MINOCYCLINE ORAL) 0 0 05/30/2009 10/23/2013 ibuprofen (MOTRIN) 800 mg tablet 0 10/23/2013 LACTOBACILLUS ACIDOPHILUS ORAL 0 05/3010/23/2013 ERGOCALCIFEROL, VITAMIN D2, (VITAMIN D 0 05/30/2009 10/23/2013 ORAL) loratadine (CLARITIN) 10 mg tablet 0 0 04/07/2004 10/23/2013 documented as of this encounter Plan of Treatment Not on filedocumented as of this encounter Procedures Procedure Name Priority Date/Time Associated Diagnosis Comme nts FILM LIBRARY Routine 10/12/2012 12:00 AM Pain Results for this STORAGE ONLY DX EDT procedure ar e in SPINE the results section. documented in this encounter Results Film Library- Storage only DX Spine (10/12/2012 12:00 AM EDT) Specimen (Source) Anatomical Location Collection Method / Collectio n Time Received Time / Laterality Volume Narrative [facility] - 01/02/2015 1:27 PM EDT See PACS for result report. Dr Rodriguez [facility] IM FILM LIBRARY ORDERABLES Performing Organization Address City/State/ZIP Code Phon e Number [place], [place] documented in this encounter Visit Diagnoses Diagnosis Pain Generalized pain documented in this encounter Care Teams Notch Grinder Relationship Specialty Start Date End Date Joanie Bailon APRN PCP - General 01/28/10 10/04/13 documented as of this encounter
--- OUTSIDE RECORDS SUMMARY | 2021-10-23 13:54 | XMS_ITS | Encounter Summary ---
:1965 Author Organization [facility] [place] [address] Care Team Providers Name Role Phone Adamaris Lima APRN, Nicole Primary Care Provider [phone] Encounter Details Date Type Department Care Team Description 10/19/2012 Hospital Encounter Radiology [place] [facility] [place], [place] [address] Social History Tobacco Use Types Packs/Day [...] Associated Diagnosis Comme nts FILM LIBRARY Routine 10/19/2012 12:00 AM Pain Results for this STORAGE ONLY MR EDT procedure ar e in SPINE the results section. documented in this encounter Results Film Library- Storage only MR Spine (10/19/2012 12:00 AM EDT) Specimen (Source) Anatomical Location Collection Method / Collectio n Time Received Time / Laterality Volume Narrative [facility] - 01/02/2015 1:26 PM EDT See PACS for result report. Dr Rodriguez [facility] IM FILM LIBRARY ORDERABLES Performing Organization Address City/State/ZIP Code Phon e Number [place], [place] documented in this encounter Visit Diagnoses Diagnosis Pain Generalized pain documented in this encounter Care Teams Dial Mounter Relationship Specialty Start Date End Date Joanie Bailon APRN PCP - General 01/28/10 10/04/13 documented as of this encounter
--- OUTSIDE RECORDS SUMMARY | 2021-10-23 13:54 | XMS_ITS | Encounter Summary ---
:1965 Author Organization [facility] [place] [address] Care Team Providers Name Role Phone Adamaris Lima APRN, Nicole Primary Care Provider [phone] Encounter Details Date Type Department Care Team Description 03/30/2013 Hospital Encounter Radiology Library at [facility] [place], [place] [address] Social History Tobacco Use Types Packs/Day [...] Associated Diagnosis Comme nts FILM LIBRARY Routine 03/30/2013 12:00 AM Pain Results for this STORAGE ONLY MR EST procedure ar e in SPINE the results section. documented in this encounter Results Film Library- Storage only MR Spine (03/30/2013 12:00 AM EST) Specimen (Source) Anatomical Location Collection Method / Collectio n Time Received Time / Laterality Volume Narrative [facility] - 01/02/2015 1:25 PM EDT See PACS for result report. Dr [facility] IM FILM LIBRARY ORDERABLES Performing Organization Address City/State/ZIP Code Phon e Number [place], [place] documented in this encounter Visit Diagnoses Diagnosis Pain Generalized pain documented in this encounter Care Teams Transplanter Orchid Relationship Specialty Start Date End Date Joanie Bailon APRN PCP - General 01/28/10 10/04/13 documented as of this encounter
--- OUTSIDE RECORDS SUMMARY | 2021-10-23 13:56 | XMS_ITS | Encounter Summary ---
:1965 Author Organization [facility] Address [address] [place] [address] Care Team Providers Name Role Phone More Moody Primary Care Provider Encounter Details Date Type Department Care Team Description 04/09/2017 Results Only [facility]- Amada Kern MD [phone] [address] [place], [place] [address] (Wo rk) Social History Tobacco Use Types Packs/Day Years Used Date Never Assessed Sex Assigned at Date Recorded Not on file documented as of this encounter Plan of Treatment Not on filedocumented as of this encounter Procedures Procedure Name Priority Date/Time Associated Diagnosis Comme [facility] SURGICAL PATHOLOGY Routine 04/09/2017 15:52 Resul ts for this EST procedure are i n the results section. documented in this encounter Results SURGICAL PATHOLOGY (04/09/2017 15:52 EST) Pathology SURGICAL PATHOLOGY REPORT [facility] Report: Reports generated via electronic interface conta in original data; [facility] however they are lacking the format of the original re port. SERVICES Caution should be taken when reading/interpreting unfo rmatted reports. Name: ? CHRISTOPHER ALATORRE ? Accession #: ? [id number] ? : ? 1965 (Age: 7 0) ??F ? Collect Date: ? 04/09/2017 ? Location: ? [facility] ? Receive Date: ? 04/09/2017 ? Provider: AMADA CASAS MD Copy to: JOSUE SAHNI DO ? Final Pathologic Diagnosis: BREAST, LEFT, STEREOTACTIC VACUUM ASSISTED LARGE CORE BIOPSY: - Benign breast tissue with usual ductal hyperplasia and columnar cell changes. 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 Document reviewed and electronically signed by: TERRI DWYER MD Report ??Date: 04/13/2017 09:50 By the signature above, the attending physician certif ies that he/she has personally conducted a gross and/or microscopic examin ation of the described specimens and rendered or confirmed the above diagnosi s. Specimen(s) Received: Stereotactic vacuum-assisted large core biopsy Clinical History: Left breast mass; clinical diagnosis code: N63.20 Gross Description: ? Received in formalin labelled with proper patient identification (initials B, K) and left breast bx are multiple fragments of y ellow-white fibrofatty tissue (1.1 x 0.2 x 0.2 cm to 0.2 x 0.2 x 0.2 cm ). Entirely submitted in 1-3. Time removed from patient: 04/09/2017 at 1200 hrs Time placed in formalin: 04/09/2017 at 1200 hrs Time out of formalin: 04/10/[address] John 04/10/2017 12:08 PM End of Report Specimen Performing Organization Address City/State/ZIP Code Phon e Number [facility] [address] [place] [address] SERVICES documented in this encounter Visit Diagnoses Not on filedocumented in this encounter Care Teams Metal Pattern Maker Relationship Specialty Start Date End Date More Moody DO PCP - General 10/31/13 04/13/17 [address] [place] [address] documented as of this encounter
--- OUTSIDE RECORDS SUMMARY | 2021-10-23 13:56 | XMS_ITS ---
:1965 Author Care Team Providers Name Role Phone DR. JOSUE SAHNI Primary Care Provider [phone] DR. JOSUE SAHNI Referring Provider [phone] Allergies Code Code System Name Reaction Severity Status Onset Cat Dander ? ? Active ? 7000175 RxNorm Dog Dander ? ? Active ? 0974397 RxNorm Latex Rash ? Active ? 520385 RxNorm Lyrica Other ? Active ? 200846 RxNorm Mold ? ? Active ? Tree and Shrub Pollen ? ? Active ? 20230509 RxNorm Tylenol Other ? Active ? Medications Name Status Start Date Stop Date ? ? Acidophilus Active ? Not available 1 tab once daily. amitriptyline 50 mg tablet Active ? Not a vailable Take 1 tablet every day by oral route. cholecalciferol (vitamin D3) 125 mcg (5,000 unit) tablet Active ? Not available Take 1 tablet every day by oral route. cyanocobalamin (vitamin B-12) 2,500 mcg tablet Active ? Not available Take 1 tablet every day by oral route. desoximetasone 0.05 % topical ointment Active ? Not available APPLY A THIN LAYER TO THE AFFECTED AREA (S) BY TOPICAL ROUTE PRN; RUB IN GENTLY AND COMPLETELY digestive enzymes capsule Active ? Not av ailable Take 1 capsule every day by oral route. Elocon 0.1 % topical cream Active ? Not a vailable APPLY A THIN LAYER TO THE AFFECTED AREA(S) BY TOPICAL ROUTE ONC E DAILY famotidine 20 mg tablet Active ? Not avai lable Take 1 tablet twice a day by oral route. glycopyrrolate 1 mg tablet Completed ? 02/11 Take 1 tablet twice a day by oral route. Imitrex 100 mg tablet Active ? Not availa ble TAKE 1 TABLET (100 MG) BY ORAL ROUTE AF TER ONSET OF MIGRAINE; MAY REPEAT AFTER 2 HOURS IF HEADACHE RETURNS, NOT TO EXCEED 200MG IN 24HRS Jardiance 10 mg tablet Completed ? 12/07/202 1 Take 1 tablet every day by oral route in the morning for 30 day s. levothyroxine 25 mcg tablet Completed ? 09/05 Take 1 tablet every day by oral route. loratadine 10 mg tablet Active ? Not avai lable Take 1 tablet every day by oral route. lovastatin 40 mg tablet Active ? Not avai lable Take 1 tablet every day by oral route. magnesium 100 mg capsule Active ? Not irais ilable Take 1 capsule every day by oral route. metformin ER 500 mg tablet,extended release 24 hr Active ? Not available One tablet in morning before breakfast and two in evening befor e supper minocycline 50 mg capsule Active ? Not av ailable Take 1 capsule twice a day by oral route. multivitamin tablet Active ? Not availabl e Take 1 tablet every day by oral route. OneTouch Verio test strips Active ? Not a vailable Test BG up to 30 times a month as directed medically necessary, dx E 11.65 oxybutynin chloride 5 mg tablet Active ? Not available Take 1 tablet every day by oral route. Probiotic Active ? Not available As directed. propranolol 40 mg tablet Active ? Not irais ilable Take 1 tablet twice a day by oral route. Senna Lax 8.6 mg tablet Active ? Not avai lable Take 1-4 tabs at night prn. Problems Name Status Onset Date Source ? Simple Goiter Active 09/23/2020 ? Impaired Fasting Glycemia Active 09/23/2020 ? Type II Diabetes Mellitus Uncontrolled Active 1 ? Decreased Cortisol Level Active 10/13/2020 ? Uterine Fibroid Polyp Active ? ? Hypothyroidism Active ? ? Vitamin B Deficiency Active ? ? Hypercholesterolemia Active ? ? Hyperlipidemia Active ? ? Obesity Active ? ? Morbid Obesity Active ? ? Obstructive Sleep Apnea Syndrome Active ? ? Spinal Cord Disease Active ? ? Chronic Pain Syndrome Active ? ? Migraine Active ? ? Raynaud's Disease Active ? ? Deviated Nasal Septum Active ? ? Chronic Rhinitis Active ? ? Allergic Rhinitis Active ? ? Nasal Mucosa Dry Active ? ? Gastro-esophageal Reflux Disease with Esophagitis Active ? ? Hernia of Abdominal Wall Active ? ? Constipation Active ? ? Irritable Bowel Syndrome Active ? ? Gallstone Active ? ? Calculus of Gallbladder with Cholecystitis Active ? ? Rosacea Active ? ? Multiple Joint Pain Active ? ? Cervical Myelopathy Active ? ? Degeneration of Cervical Intervertebral Disc Active ? ? Degeneration of Lumbar Intervertebral Disc Active ? ? Neck Pain Active ? ? Lumbago with Sciatica Active ? ? Sacroiliac Joint Pain Active ? ? Fibromyalgia Active ? ? Fatigue Active ? ? Paresthesia Active ? ? Edema of Foot Active ? ? Edema, Generalized Active ? ? Incontinence Active ? ? Pelvic Mass Active ? ? Abnormal Reflex Active ? ? Hyperreflexia Active ? ? Hotel Engineer Current Use of Non-steroidal Anti-inflammatory Drug Ac tive ? ? Body Mass Index 40+ - Severely Obese Active ? ? Trigger Thumb of Right Hand Active ? ? Pain in Right Knee Active ? ? Pain in Left Knee Active ? ? Hypertrophy of Nasal Turbinates Active ? ? Carpal Tunnel Syndrome of Right Wrist Active ? ? Ultrasonography of Breast Abnormal Active ? ? Procedures Date Name Performed by ? 01/14/2018 Endoscopy Information not avai lable 01/14/2018 Colonoscopy Information not avai lable 02/04/2016 Wrist Surgery Information not avai lable 08/24/2014 Laparoscopy Information not avai lable 07/18/2014 Cystoscopy Information not avai lable Notes: Left ureteroscopy w/ lithotrips y, stent (Dr. Dumas). 01/29/2014 Septoplasty Information not avai lable Notes: Bilateral inferior turbinatopla sty - excisional. 10/27/2013 Laparoscopic Cholecystectomy Information not available 05/06/2013 Procedure Information not avai lable Notes: Epidural for neck pain, getting a series. ? Hernia Repair Information not avai lable Notes: 04/2020. ? Ovarian Cystectomy Information not avai lable ? Procedure Information not avai lable Notes: 01/2015: 2 injections for sacro iliac pain at [facility]. ? Tubal Ligation Information not avai lable ? Foot Surgery Information not avai lable Notes: Right Foot ? Tonsillectomy and Adenoidectomy Informat ion not available Notes: [id number] ? Carpal Tunnel Surgery Information not av ailable Notes: Bilateral. ? CT of Abdomen Information not avai lable Notes: 06/2014. ? MRI of Neck Information not avai lable Notes: 2003: mild bulging discs C3-4, C6-7, some spurring C5-6 (seen by Clarice for EMGs which show CTS. ? Partial Hysterectomy Information not irais ilable Notes: 199809/23/2020 US, Thyroid [facility] (Imaging) [address] [place] [address] (Work Place) Results Lab Results Date Name Specimen Result Interpretation Description Value Range Status Address ? 06/17/2021 Glucose, Blood ? Blood 156 ? ? Rhc - Fingerstick, capillary Glucose: mg/dl Specialty: Blood [address] [facility] 06/10/2021 HbA1C (Hemoglobin ? No observation ? ? ? Mare a1C), Blood recorded. [facility] ([facility]): [address] [facility] 06/10/2021 TSH, Serum or ? No observation ? ? ? [place] Plasma recorded. [facility] ([facility]): [address] [facility] 06/10/2021 BMP, Serum or ? No observation ? ? ? Mare Plasma recorded. [facility] ([facility]): [address] [facility] 02/11/2021 Glucose, Blood ? Blood 151 ? ? Rhc - Fingerstick, capillary Glucose: mg/dl Specialty: Blood [address] [facility] 10/03/2020 Cortisol, Free, ? No observation ? ? ? Serum recorded. 10/03/2020 Microalbumin/crea ? No observation ? ? ? Mare tinine, Ratio recorded. [facility] Panel, Urine Hosp ital: [address] [place] [address] 10/03/2020 BMP, Serum or ? No observation ? ? ? Mare Plasma recorded. [facility]: [address] [place] [address] 09/24/2020 Thyroglobulin Ab, ? No observation ? ? ? Mare Serum recorded. [facility]: [address] [place] [address] 09/24/2020 Thyroid ? No observation ? ? ? [place] Peroxidase (Tpo) recorded. [facility] Ab, Serum Hospita l: [address] [place] [address] 09/24/2020 T4, Free, Serum ? No observation ? ? ? [place] recorded. [facility]: [address] [place] [address] 09/24/2020 TSH, Serum or ? No observation ? ? ? [place] Plasma recorded. [facility]: [address] [place] [address] 09/24/2020 Cortisol, Am, ? No observation ? ? ? Mare Serum recorded. [facility] ([facility]): [address] 09/24/2020 HbA1C (Hemoglobin ? No observation ? ? ? [place] a1C), Blood recorded. [facility] ([facility]): [address] Past Encounters 06/16/2021 Type II Diabetes Mellitus Uncontrolled; Hypothyroidism; Body Mass Index 40+ - Severely Obese; Non-toxic Nodular Goiter Aime Sheehan MD-FACE: [address] [place] [address], Ph. 02/11/2021 Type II Diabetes Mellitus Uncontrolled; Hypothyroidism; Administration of Influenza Vaccine; Body Mass Index 40+ - Severely Obese; Non-toxic Nodular Goiter Aime Sheehan MD-FACE: [address] [place] [address], Ph. 11/05/2020 Type II Diabetes Mellitus Uncontrolled; Hypothyroidism; Body Mass Index 40+ - Severely Obese Aime Sheehan MD-FACE: [address] [place] [address], Ph. 09/23/2020 Hypothyroidism; Body Mass Index 40+ - Se verely Obese; Impaired Fasting Glycemia; Simple Goiter Aime Sheehan MD-FACE: [address] [place] [address], Ph. Social History Tobacco Smoking Status Former Smoker Notes: 02/11/21 Vaccine List Vaccine Type COVID-19 (SARS-COV-2) vaccine, unspecifi ed 07/17/2020 08/07/2020 Plan of Care Patient Goals A1c near or below 6.5% pre meal BG low 100s (below 125 ) 2 hour Post meal BG below 180 (preferbly below 160 ) Avoid Moderate or Severe Hypoglycemia A1c near 6.5% pre meal BG low 100s (below 125 ) 2 hour Post meal BG below 180 (preferbly below 160 ) Avoid Moderate or Severe Hypoglycemia A1c near 6.5% pre meal BG low 100s (below 125 ) 2 hour Post meal BG below 180 (preferbly below 160 ) Avoid Moderate or Severe Hypoglycemia Clarify above issues. Patient Instructions 1. Go to lab a Two weeks before next vi sit (FASTING, 8 HOURS WATER ONLY) 2. Treating DM2 HEALTHY EATING HABITS ----Limited Carbohydrate: a) Limit Bread, Noodles, Pasta, Potato, Rice and other high carbohydrate foods. b) Infrequently eat ice cream, cake, pie s, other high carbo dessert items ---Limited Saturated Fat ---No added salt: (Salt, Sodium, ) ----High Fiber ----More Green Vegetables ----Fruit, But Limit amounts (one apple, one peach, one pear, 1/2 banana, 12 grapes) ---- Take one large glass of water befor e each meal EXERCISE Move, Lift, Stretch -------MOVE (walk, hike, treadmill, swim , bicycle, snow shoe, mow lawn, others) -------LIFT: Upper body (arms) - 1 -2#, lower body (leg) limited squats, stairs, step ------STRETCH: Stretch: Gently, all area s from neck to toes. ORAL MEDICATIONS: ----Metfromin 500 mg : One tablet in mor alverto before breakfast and two in evening before supper low cost. ---- DPP 4 eg Januvia, Onglyz NO WEIGHT GAIN. LOW RISK OF HYPOGLYCEMIA ---- SGLT2 eg Jardiance, Invokanna, Fa rxigo Weight loss, Diurect effect but $$$$ ---- Sulfonylurea eg Glipizide Lower but BG, but Weight Gain, Hypoglycemia low cost. GLP-1 AGONIST Injections (future optio n, these meds also facilitate weight loss. BUT $$$$$ ---- Byetta mg inject twice daily pre br eakfast and pre supper -----Victoza mg inject once daily pre br eakast ---- Bydureon Trulicity Ozempic mg injec t once weekly -----Rybelsus (oral) one tab by mouth da wilma preferred since Weight loss is major e ffect. free of hypoglycemia. bad cost $$ INSULIN THERAPY: -- Not indicated BG TEST PLAN Test Blood Sugar 3 -4 daily before break fast Test pre breakfast and 2 hours post laci kfast every 4nd day of sixteen days ( of month: () [Total 2 times] T est Pre and 2 hours Post lunch every 12t h day of days ( of ) [total 2 times] and Test Blood Sugar pre Supper and 2 h ours Post supper every 8th day ( 8, 16, 24, ) . [total; 3 times] The daily pre breakfast blood sugar will document your fasting Glucose Control. The paired pre and 2 hour Post meal will document you Glucose Control after Meal Carbohydrate Load Keep REcords of BGs 1. Go to lab a Two weeks before next vi sit (FASTING, 8 HOURS WATER ONLY) 2. reating DM2 HEALTHY EATING HABITS ----Limited Carbohydrate: a) Limit Bread, Noodles, Pasta, Potato, Rice and other high carbohydrate foods. b) Infrequently eat ice cream, cake, pie s, other high carbo dessert items ---Limited Saturated Fat ---No added salt: (Salt, Sodium, ) ----High Fiber ----More Green Vegetables ----Fruit, But Limit amounts (one apple, one peach, one pear, 1/2 banana, 12 grapes) ---- Take one large glass of water befor e each meal EXERCISE Move, Lift, Stretch -------MOVE (walk, hike, treadmill, swim , bicycle, snow shoe, mow lawn, others) -------LIFT: Upper body (arms) - 1 -2#, lower body (leg) limited squats, stairs, step ------STRETCH: Stretch: Gently, all area s from neck to toes. ORAL MEDICATIONS: ----Metfromin 500 mg : One tablet in mor alverto before breakfast and two in evening before supper low cost. ---- DPP 4 eg Januvia, Onglyz NO WEIGHT GAIN. LOW RISK OF HYPOGLYCEMIA ---- SGLT2 eg Jardiance, Invokanna, Farx igo Weight loss, Diurect effect but $$$$ ---- Sulfonylurea eg Glipizide Lower but BG, but Weight Gain, Hypoglycemia low cost. GLP-1 AGONIST Injections (future option, these meds also facilitate weight loss. BUT $$$$$ ---- Byetta mg inject twice daily pre br eakfast and pre supper -----Victoza mg inject once daily pre br eakast ---- Bydureon Trulicity Ozempic mg injec t once weekly INSULIN THERAPY: -- Not indicated BG TEST PLAN Test Blood Sugar 3 -4 daily before break fast Test pre breakfast and 2 hours post laci kfast every 4nd day of sixteen days (days of month: (, 20) [Total 2 times] T est Pre and 2 hours Post lunch every 12t h day of sixteen days ( of ) [total 2 times] and Test Blood Sugar pre Supper and 2 h ours Post supper every 8th day ( 8, 16, 24, ) . [total; 3 times] The daily pre breakfast blood sugar will document your fasting Glucose Control. The paired pre and 2 hour Post meal will document you Glucose Control after Meal Carbohydrate Load Keep REcords of BGs 1. Go to lab a Two weeks before next vi sit (FASTING, 8 HOURS WATER ONLY) 2. Begin Treating DM2 HEALTHY EATING HABITS ----Limited Carbohydrate: a) Limit Bread, Noodles, Pasta, Potato, Rice and other high carbohydrate foods. b) Infrequently eat ice cream, cake, pie s, other high carbo dessert items ---Limited Saturated Fat ---No added salt: (Salt, Sodium, ) ----High Fiber ----More Green Vegetables ----Fruit, But Limit amounts (one apple, one peach, one pear, 1/2 banana, 12 grapes) ---- Take one large glass of water befor e each meal EXERCISE Move, Lift, Stretch -------MOVE (walk, hike, treadmill, swim , bicycle, snow shoe, mow lawn, others) -------LIFT: Upper body (arms) - 1 -2#, lower body (leg) limited squats, stairs, step ------STRETCH: Stretch: Gently, all area s from neck to toes. ORAL MEDICATIONS: ----Metfromin 500 mg once daily ---- Invokanna 100 mg each mornnig. GLP-1 AGONIST Injections (future option, these meds also facilitate weight loss. ---- Byetta mg inject twice daily pre br eakfast and pre supper -----Victoza mg inject once daily pre br eakast ---- Bydureon Trulicity Ozempic mg injec t once weekly INSULIN THERAPY: -- Not indicated BG TEST PLAN Test Blood Sugar 3 -4 daily before break fast Test pre breakfast and 2 hours post laci kfast every 4nd day of sixteen days ( of : (, ) [Total 2 times] T est Pre and 2 hours Post lunch every 12t h day of days ( of ) [total 2 times] and Test Blood Sugar pre Supper and 2 h ours Post supper every 8th day ( 8, 16, 24, ) . [total; 3 times] The daily pre breakfast blood sugar will document your fasting Glucose Control. The paired pre and 2 hour Post meal will document you Glucose Control after Meal Carbohydrate Load Keep REcords of BGs 1. Go to lab after 8 hour fast water on ly blood . give 75 gm Glucose load, then 2 hour sample 2. Collect saliva sample near 12 midnigh t. 3. Thyroid US at [facility]. 4. Then further testing as indicated. Reminders Provider Appointments None recorded. ? ? Lab None recorded. ? ? Referral None recorded. ? ? Procedures None recorded. ? ? Surgeries None recorded. ? ? Imaging None recorded. ? ? Vitals 06/16/2021 12:30PM ENDOCRINOLOGY FOLLOW UP 30 Height Weight BMI Blood Pressure 156.21 cm 122.92 kg 50.4 kg/m2 138/84 mm[Hg] 02/11/2021 09:30AM ENDOCRINOLOGY FOLLOW UP 30 Height Weight BMI Blood Pressure 156.21 cm 122.92 kg 50.4 kg/m2 118/58 mm[Hg] 11/05/2020 11:00AM ENDOCRINOLOGY FOLLOW UP 30 Height Weight BMI Blood Pressure 156.21 cm 123.15 kg 50.5 kg/m2 122/84 mm[Hg] 09/23/2020 12:30PM ENDOCRINOLOGY NEW PATIENT 60 Height Weight BMI Blood Pressure 156.21 cm 122.47 kg 50.2 kg/m2 136/66 mm[Hg]
--- OUTSIDE RECORDS SUMMARY | 2021-10-23 13:56 | XMS_ITS | Encounter Summary ---
:1965 Author Organization [facility] Address [address] [place] [address] Care Team Providers Name Role Phone Roula Moody Primary Care Provider Encounter Details Date Type Department Care Team Description 10/10/2014 Results Only [facility] Dawn Vargas, [address] [place], [place] [address] Social History Tobacco Use Types Packs/Day Years Used Date Never Assessed Sex Assigned at Date Recorded Not on file documented as of this encounter Plan of Treatment Not on filedocumented as of this encounter Procedures Procedure Name Priority Date/Time Associated Diagnosis Comme nts PAP TEST- RESULT Routine 10/10/2014 0:00 EDT Resu lts for this ONLY procedure are i n the results section. documented in this encounter Results PAP TEST- RESULT ONLY (10/10/2014 0:00 EDT) Pathology Report: CYTOPATHOLOGY REPORT [facility] Reports generated via electronic interface contain arianna ginal data; SERVICES however they are lacking the format of the original re port. Caution should be taken when reading/interpreting unfo rmatted reports. Name: ? ROULA MANTILLA ? Accession #: ? [id number] : ? 1965 (Age: [age]) ??F ?Collect Date: ? 2014 Location: ? [facility] ? Receive Date : ? 10/12/2014 Provider: ?DAWN WASHINGTON Copy to: ? Specimen/Source: ? Pap Test, Vagina, ThinPrep Imaging System with manual evaluation Last Menstrual Period: ? N/A Treatment History: ? Miscellaneous treatment: TBL, Laparoscopy Bilateral Sa lpingectomy, Bilateral Ovarian Cystotomy ? SPECIMEN ADEQUACY ? Satisfactory for Evaluation - assessment of transformation zone component not appl icable ( e.g. atrophy, vaginal sample, hysterectomy) GENERAL CATEGORIZATION ? Negative for Intraepithelial Lesion or Malignan cy ? Document reviewed and electronically signed by: ? SHAR Tristan(ASCP) ? Report Date: ??10/17/2014 11:41 End of Report Specimen Performing Organization Address City/State/ZIP Code Phon e Number [facility] [address] [place] [address] SERVICES documented in this encounter Visit Diagnoses Not on filedocumented in this encounter Care Teams Truck Technician Relationship Specialty Start Date End Date Roula Moody DO PCP - General 10/31/13 04/13/17 [address] [place] [address] documented as of this encounter
--- OUTSIDE RECORDS SUMMARY | 2021-10-23 13:56 | XMS_ITS | Clinical Summary ---
:1965 Author Organization [facility] Address [address] [place] [id number] Care Team Providers Name Role Phone Matteo Grier DO Primary Care Provider Social History Tobacco Use Types Packs/Day Years Used Date Never Assessed Sex Assigned at Date Recorded Not on file Plan of Treatment Not on file Care Teams Barrel Line Operator Relationship Specialty Start Date End Date Matteo Grier DO PCP - General 04/14/17 [address] [place] [address]
--- OUTSIDE RECORDS SUMMARY | 2021-10-23 13:56 | XMS_ITS | Encounter Summary ---
:1965 Author Organization [facility] Address [address] [place] [address] Care Team Providers Name Role Phone Unavailable Primary Care Provider Unavailable Encounter Details Date Type Department Care Team Description 01/26/2005 Before [facility] - Feliciano Littlejohn, Converted Visit Jesi conley MD (Mapchristopher) [address] [facility] [address] [place], [place] [id number] [place] [address] [place], [address] [place] [address] (Wo rk) Social History Tobacco Use Types Packs/Day Years Used Date Never Assessed Sex Assigned at Date Recorded Not on file documented as of this encounter Plan of Treatment Not on filedocumented as of this encounter Visit Diagnoses Evaluation - Feliciano Littlejohn MD - 05/08/2009 1345 EST DIVISION OF DERMATOLOGY NEW PATIENT EVALUATION - 01/26/2005 SUBJECTIVE: Ms. Trimble is a new patient to the dermatology clinic who presents today for evaluation and treatment recommendations for a rash on her face that has been previously diagnosed as rosacea. She is currently using MetroCream topically twice daily to treat this area. She states that she flushes and blushes with hot drinks and alcohol, as well as exposure to the sun. She develops acne-like lesions on the cheeks episodically, including some deep and tender nodules. This is associated with some redness andscaling along the melolabial folds and on the chin in a perioral distribution. She has no other concerns with regard to her skin today. Patient is otherwise in good health. For complete past medical history, current medications, medication allergies, family and social history, and review of systems, please see dermatology intake sheet on chart. OBJECTIVE: The patient is a well-appearing 39-year-old white female with [place] skin type II. On the cheeks bilaterally there are collections of approximately six to eight, 3 to 4 mm in diameter, inflammatory papules on an erythematous base. Along the melolabial folds and lower chin, there are pink papules clustered on an erythematous base with overlying fine scale. Examination reveals an approximately 5 mm to 1 cm in diameter zone of sparing between the rash and the vermilion border, in a perioral distribution. The remainder of her cutaneous exam is unremarkable. ASSESSMENT: 1. Papulopustular rosacea. 2. Perioral dermatitis versus seborrheic dermatitis. PLAN: 1. Patient education. Our impressions were discussed and all questions answered. We reviewed the diagnosis, etiology, and natural history of the above diagnoses. Patient educational handouts for both rosacea and perioral dermatitis were provided. 2. Elidel cream topically twice daily to areas ofdermatitis. Three patient samples were provided aneesh prescription was written for 30 grams with 3 refills. 3. Doxycycline 100 mg, 1 tablet by mouth twice daily. Prescription written for 60 tablets with 1 refill. We recommended that she try a two-month course and then return for reassessment. We did discuss potential risks of doxycycline therapy, including risks for hepatotoxicity, nausea, abdominal pain, and phototoxicity. 4. Return for follow-up in two months with either Dr. Aguayo or myself in [facility]. I saw and examined the patient with Dr. Littlejohn. I agree with the HPI, exam findings and the plan of care as outlined above. I have documented any additions/changes in the body of the note. Edited and Signed by Florencia Aguayo MD 02/12/2005 15:21 Reviewed by Feliciano Littlejohn MD 02/10/2005 09:10 Olya Garcia MDAnita L Licata, MD Dictated by: Feliciano Littlejohn MD Florencia Aguayo MD D: - Feliciano Littlejohn MD P - dm Job ID: tape Document ID: [id number] cc: PADMINI Yan documented in this encounter
--- OUTSIDE RECORDS SUMMARY | 2021-10-23 13:56 | XMS_ITS | Encounter Summary ---
:1965 Author Organization [facility] Address [address] [place] [address] Care Team Providers Name Role Phone Matteo Grier DO Primary Care Provider Encounter Details Date Type Department Care Team Description 01/14/2018 Hospital Encounter [facility]- Matilda Unknown, Provider, [facility] [address] [facility] [phone] [place] [address] (Work) [phone] Social History Tobacco Use Types Packs/Day Years Used Date Never Assessed Sex Assigned at Date Recorded Not on file documented as of this encounter Discharge Disposition Disposition Code Departure Means Destination Home or Self Usp documented in this encounter Plan of Treatment Not on filedocumented as of this encounter Visit Diagnoses Not on filedocumented in this encounter Care Teams Medical Registrar Relationship Specialty Start Date End Date Matteo Grier DO PCP - General 04/14/17 [address] [place], [place] [id number] documented as of this encounter
--- OUTSIDE RECORDS SUMMARY | 2021-10-23 13:56 | XMS_ITS | Encounter Summary ---
:1965 Author Organization [facility] Address [address] [place] [address] Care Team Providers Name Role Phone Unavailable Primary Care Provider Unavailable Encounter Details Date Type Department Care Team Description 10/27/2013 Hospital Encounter [facility] - S Unknown, Pro Jluis clement MD [address] [facility] [phone] [place] [address] (Work) [phone] Social History Tobacco Use Types Packs/Day Years Used Date Never Assessed Sex Assigned at Date Recorded Not on file documented as of this encounter Discharge Disposition Disposition Code Departure Means Destination Home or Self Alf documented in this encounter Plan of Treatment Not on filedocumented as of this encounter Visit Diagnoses Not on filedocumented in this encounter
--- OUTSIDE RECORDS SUMMARY | 2021-10-23 13:56 | XMS_ITS | Encounter Summary ---
:1965 Author Organization [facility] Address [address] [place] [address] Care Team Providers Name Role Phone Unavailable Primary Care Provider Unavailable Encounter Details Date Type Department Care Team Description 10/27/2013 Results Only [facility] Cristofer Salazar MD Laboratory Services - [address] [place] [address] [phone] Social History Tobacco Use Types Packs/Day Years Used Date Never Assessed Sex Assigned at Date Recorded Not on file documented as of this encounter Plan of Treatment Not on filedocumented as of this encounter Procedures Procedure Name Priority Date/Time Associated Diagnosis Comme [facility] SURGICAL PATHOLOGY Routine 10/27/2013 7:04 EDT Re sults for this procedure are i n the results section. documented in this encounter Results SURGICAL PATHOLOGY (10/27/2013 7:04 EDT) Pathology Report: SURGICAL PATHOLOGY REPORT [facility] Reports generated via electronic interface contain arianna ginal data; LAB however they are lacking the format of the original re port. Caution should be taken when reading/interpreting unfo rmatted reports. Name: ? ROULA MANTILLA ? Accession #: ? [id number] ? : ? 1965 (Age: 48) ??F ? Collect Date: ? 10/27/2013 ? Location: ? [facility] ? Receive Date: ? 10/28/19 14 ? Provider: INDIRA SALAZAR MD Copy to: ROULA HERNANDEZ DO ? Final Pathologic Diagnosis: GALLBLADDER, CHOLECYSTECTOMY: - ??Chronic cholecystitis and cholelithiasis. - ??Resection margin viable. Document reviewed and electronically signed by: NEDRA CURTIS MD Report ??Date: 11/01/2013 16:11 By the signature above, the attending physician certif ies that he/she has personally conducted a gross and/or microscopic examin ation of the described specimens and rendered or confirmed the above diagnosi s. Specimen(s) Received: Gallbladder Clinical History: Cholelithiasis; clinical diagnosis code: 574.20 Gross Description: ? Received in formalin labelled with proper patient identification (initials B, K) and gallbladder is an intact gallbladder (9.0 x 2.5 x 2.5 cm) with an attached segment of cystic duct (0.4 cm in length x 0. 2 cm in diameter). ? The serosa is purple- green and smooth. The mucosa is esparza-green and velvety with focal yellow stippling and the wall averages 0.2 cm in thickness. The cystic duct lumen is patent. The cystic duct margin is inked blue. A single 2.3 cm in greatest dimension ovoid yellow-brown cholelith is present. ? Two sales representative facility services se ctions and the inked en face cystic duct margin are submitted in 1. Cinda Finn 10/30/2013 10:02 AM End of Report Specimen Performing Organization Address City/State/ZIP Code Phon e Number [facility] [address] [place] [address] SERVICES [facility] [address] [place] [address] documented in this encounter Visit Diagnoses Not on filedocumented in this encounter
--- OUTSIDE RECORDS SUMMARY | 2021-10-23 13:56 | XMS_ITS | Encounter Summary ---
:1965 Author Organization [facility] Address [address] [place] [address] Care Team Providers Name Role Phone Roula Moody Primary Care Provider Encounter Details Date Type Department Care Team Description 01/29/2014 Results Only [facility] Benson Aguirre MD Laboratory Services - [address] [place] [address] [place] [address] [place], [place] [id number] [phone] Social History Tobacco Use Types Packs/Day Years Used Date Never Assessed Sex Assigned at Date Recorded Not on file documented as of this encounter Plan of Treatment Not on filedocumented as of this encounter Procedures Procedure Name Priority Date/Time Associated Diagnosis Comme [facility] SURGICAL PATHOLOGY Routine 01/29/2014 9:16 EST Re sults for this procedure are i n the results section. documented in this encounter Results SURGICAL PATHOLOGY (01/29/2014 9:16 EST) Pathology Report: SURGICAL PATHOLOGY REPORT [facility] Reports generated via electronic interface contain arianna ginal data; LABORATORY however they are lacking the format of the original re port. SERVICES Caution should be taken when reading/interpreting unfo rmatted reports. Name: ? ROULA MANTILLA ? Accession #: ? [id number] ? : ? 1965 (Age: 48) ??F ? Collect Date: ? 01/29/2014 ? Location: ? [facility] ? Receive Date: ? 01/31/20 14 ? Provider: BENSON AGUIRRE MD Copy to: VIKY LU DO ? Final Pathologic Diagnosis: A. SINONASAL CONTENTS, SEPTA L CARTILAGE AND RIGHT INFERIOR TURBINATE, EXCISION: - ??Polypoid nasal mucosa with mild chronic inflammati on. - ??Benign fragments of bone and cartilage. B. SINUS CONTENTS, LEFT INFERIOR TURBINATE, EXCISION: - ??Polypoid nasal mucosa with mild chronic inflammati on. Document reviewed and electronically signed by: NUNU SEXTON MD Report ??Date: 02/06/2014 11:18 By the signature above, the attending physician certif ies that he/she has personally conducted a gross and/or microscopic examin ation of the described specimens and rendered or confirmed the above diagnosi s. Specimen(s) Received: A. ??Septo cartilage and bone and right inferior turbi ирина B. ??Left inferior turbinate Clinical History: Clinical diagnosis code: ??470, 478.0 Gross Description: A. ?Received in formalin labelled with proper p atient identification (initials B, K) and septal cartilage and right inferior turbinate are multiple purdy-white portions of carti laginous and bony material measuring 2.5 x 2.0 x 0.8 cm in aggregate. ??The cut s urfaces are white with no discrete nodules present. Also received is a pink-esparza 1.7 x 0.6 x 0.3 cm portion of mucosa. Sprayer Machine sections are submitted as A1 (cartilagi nous and bony tissue submitted following decalcification) and A2 (muc jagruti longitudinally bisected). B. ? Received in formalin labelled with proper patient identification (initials B, K) and left inferior turbinate are two pink-esparza unoriented portions of mucosa measuring 1.0 x 0.3 x 0.2 cm and 2.4 x 0.6 x 0.2 cm. ??The smaller portion has a esparza-br own 0.3 x 0.2 x 0.1 cm central lesion. ??The specimen is entirely submitted as B1 (smaller tis viktoria with lesion) and B2 (larger tissue longitudinally bisected). Re Burrows 01/30/2014 10:32 AM End of Report Specimen Performing Organization Address City/State/ZIP Code Phon e Number [facility] [address] [place] [address] SERVICES documented in this encounter Visit Diagnoses Not on filedocumented in this encounter Care Teams Linux Server Administrator Relationship Specialty Start Date End Date Roula Moody DO PCP - General 10/31/13 04/13/17 [address] [place] [address] documented as of this encounter
--- OUTSIDE RECORDS SUMMARY | 2021-10-23 13:56 | XMS_ITS | Encounter Summary ---
:1965 Author Organization [facility] Address [address] [place] [address] Care Team Providers Name Role Phone Mika Martinez DO Primary Care Provider More Moody DO Primary Care Provider Matteo Grier DO Primary Care Provider Encounter Details Date Type Department Care Team Description 04/10/2005 Hospital Encounter [facility] Florencia Aguayo MD [address] [address] [address] [place] [address] (Wo rk) Social History Tobacco Use Types Packs/Day Years Used Date Never Assessed Sex Assigned at Date Recorded Not on file documented as of this encounter Plan of Treatment Not on filedocumented as of this encounter Visit Diagnoses Not on filedocumented in this encounter Care Teams Lumber Carrier Relationship Specialty Start Date End Date Mika Martinez, PCP - General 10/30/13 10/30/13 More Moody DO PCP - General 10/31/13 04/13/17 [address] [place] [address] Matteo Grier DO PCP - General 04/14/17 [address] [place], [place] [phone] documented as of this encounter
--- OUTSIDE RECORDS SUMMARY | 2021-10-23 13:56 | XMS_ITS | Encounter Summary ---
:1965 Author Organization [facility] Address [address] [place] [address] Care Team Providers Name Role Phone Unavailable Primary Care Provider Unavailable Encounter Details Date Type Department Care Team Description 01/26/2005 Hospital Encounter [facility] - Mychal Aguilar PA [facility] [address] [address] [place], [place] [id number] [phone] Social History Tobacco Use Types Packs/Day Years Used Date Never Assessed Sex Assigned at Date Recorded Not on file documented as of this encounter Discharge Disposition Disposition Code Departure Means Destination Auto Discharge documented in this encounter Plan of Treatment Not on filedocumented as of this encounter Procedures Procedure Name Priority Date/Time Associated Diagnosis Comme nts MR ANGIO HEAD,BRAIN 01/26/2005 12:29 Resu lts for this WO CONTRAST EST procedure are i n the results section. documented in this encounter Results MR ANGIO HEAD,BRAIN WO CONTRAST (01/26/2005 12:29 EST) Anatomical Region Laterality Modality Other Specimen Narrative [facility] - 10/05/2008 2: 56 EDT INCREASED MIGRAINES, FAMILY HISTORY OF BRAIN ANEURYSM MRI OF THE BRAIN AND MRA OF THE [place] RESERVATION O F [place]: 01/26/2005 CLINICAL HISTORY: Increased migraines, family history of brain aneurysm. ??Rule out aneurysm. TECHNIQUE: Sagittal T1 FLAIR, transverse T2 FLAIR, FSE T2, diffusion and gradient echo non-contrast MR images of the brain were performed. Noncontrast 3D TOF images of the [place] were performed with targeted MIP reformations. FINDINGS: MRI of the brain demonstrates the ventr icles and extra-axial CSF spaces appropriate for age. ??There is n o mass effect or midline shift. ??Signal intensity throughout the brain and brain stem is unremarkable. ??The orbits are free of a bnormality. ??The mastoid air cells are clear. ??There is a small mucu s retention cyst in the right maxillary sinus. ??Minimal mucosal thick ening is noted within the ethmoid air cells and left maxillary sin us. ??No air-fluid levels are present to suggest the presence of acute sinusitis. ??Flow voids are present in the major intracranial arteri es and dural venous sinuses. MR angiography of the [place] d emonstrates no evidence of aneurysm, vascular malformation, or intr acranial stenosis. IMPRESSIONS: 1. ??Minimal chronic inflammatory sinus disease. 2. ??Otherwise, normal MRI of the brain and [place]. /tns I have personally reviewed the images an d the above interpretation and agree with the findings. Procedure Note Na Douglas MD / Nicolas Mccord MD - 10/05/2008 INCREASED MIGRAINES, FAMILY HISTORY OF BRAIN ANEURYSM MRI OF THE BRAIN AND MRA OF THE [place] RESERVATION O F [place]: 01/26/2005 CLINICAL HISTORY: Increased migraines, family history of brain aneurysm. Rule out aneurysm. TECHNIQUE: Sagittal T1 FLAIR, transverse T2 FLAIR, FSE T2, diffusion and gradient echo non-contrast MR images of the brain were performed. Noncontrast 3D TOF images of the [place] were performed with targeted MIP reformations. FINDINGS: MRI of the brain demonstrates the ventr icles and extra-axial CSF spaces appropriate for age. There is no mass effect or midline shift. Signal intensity throughout the b rain and brain stem is unremarkable. The orbits are free of abn ormality. The mastoid air cells are clear. There is a small mucus retention cyst in the right maxillary sinus. Minimal mucosal thicken ing is noted within the ethmoid air cells and left maxillary sin us. No air-fluid levels are present to suggest the presence of acute sinusitis. Flow voids are present in the major intracranial arteri es and dural venous sinuses. MR angiography of the [place] d emonstrates no evidence of aneurysm, vascular malformation, or intr acranial stenosis. IMPRESSIONS: 1. Minimal chronic inflammatory sinus d isease. 2. Otherwise, normal MRI of the brain an d [place]. /amber I have personally reviewed the images an d the above interpretation and agree with the findings. Performing Organization Address City/State/ZIP Code Phon e Number [facility] [address] [facility] [address] [facility] [address] [place], [place] [address] documented in this encounter Visit Diagnoses Not on filedocumented in this encounter
--- OUTSIDE RECORDS SUMMARY | 2021-10-23 13:56 | XMS_ITS | Encounter Summary ---
:1965 Author Organization [facility] Address [address] [place] [address] Care Team Providers Name Role Phone CherrieJosue Paris DO Primary Care Provider Encounter Details Date Type Department Care Team Description 01/14/2018 Results Only [facility] Ronnie Pimentel MD [phone] [address] [place] [address] (Wo rk) Social History Tobacco Use Types Packs/Day Years Used Date Never Assessed Sex Assigned at Date Recorded Not on file documented as of this encounter Plan of Treatment Not on filedocumented as of this encounter Procedures Procedure Name Priority Date/Time Associated Diagnosis Comme [facility] SURGICAL PATHOLOGY Routine 01/14/2018 15:46 Resul ts for this EST procedure are i n the results section. documented in this encounter Results SURGICAL PATHOLOGY (01/14/2018 15:46 EST) Pathology Report: SURGICAL PATHOLOGY REPORT [facility] Reports generated via electronic interface contain arianna ginal data; LABORATORY however they are lacking the format of the original re port. SERVICES Caution should be taken when reading/interpreting unfo rmatted reports. Name: ? CHRISTOPHER ALATORRE ? Accession #: ? [id number] ? : ? 1965 (Age: 7 0) ??F ? Collect Date: ? 01/14/2018 ? Location: ? [facility] ? Receive Date: ? 01/18/20 18 ? Provider: RONNIE PIMENTEL MD Copy to: JOSUE SAHNI DO ? Final Pathologic Diagnosis: A. ??DUODENUM, BIOPSY: - Unremarkable duodenal mucosa. - Negative for gluten-sensitive enteropathy. ?? B. ??STOMACH ANTRUM, BIOPSY: - Reactive gastropathy. - Negative for Helicobacter pylori organisms. ?? C. ??GE JUNCTION, BIOPSY: - Squamo-columnar junctional mucosa. - Negative for Gant's specialized-columnar epitheli um. Document reviewed and electronically signed by: LENI CARRERA MD Report ??Date: 01/19/2018 15:35 By the signature above, the attending physician certif ies that he/she has personally conducted a gross and/or microscopic examin ation of the described specimens and rendered or confirmed the above diagnosi s. Specimen(s) Received: A. ??Duodenum biopsy B. ??Antrum biopsy C. ??GE junction biopsy Clinical History: GERD; clinical diagnosis code: R10.13, K59.09 Gross Description: A. ?Received in formalin labelled with proper p atient identification (initials B, K) and duodenum biopsy are three fragme nts of brown tissue measuring 0.3 x 0.2 x 0.2 cm. The specimens are submit joel entirely in A1. B. ?Received in formalin labelled with proper p atient identification (initials B, K) and antrum biopsy are two fragments of esparza-pink tissue measuring 0.2 x 0.2 x 0.2 cm and the specimens are sub mitted entirely in B1. C. ?Received in formalin labelled with proper p atient identification (initials B, K) and GE junction biopsy are two fragments of esparza-white tissue measuring 0.3 x 0.3 x 0.2 cm. The specimens are submit joel entirely in C1. PADMINI Nelson (ASCP) 01/17/2018 4:00 PM End of Report Specimen Performing Organization Address City/State/ZIP Code Phon e Number [facility] [address] [place] [address] SERVICES documented in this encounter Visit Diagnoses Not on filedocumented in this encounter Care Teams Rawhide Bone Roller Relationship Specialty Start Date End Date Josue Sahni DO PCP - General 04/14/17 [address] [place] [address] documented as of this encounter
--- OUTSIDE RECORDS SUMMARY | 2021-10-23 13:56 | XMS_ITS | Encounter Summary ---
:1965 Author Organization [facility] Address [address] [place] [address] Care Team Providers Name Role Phone More Moody DO Primary Care Provider Encounter Details Date Type Department Care Team Description 01/29/2014 Hospital Encounter [facility]- Matilda Unknown, Provider, [facility] [address] [facility] [phone] [place] [address] (Work) [phone] Social History Tobacco Use Types Packs/Day Years Used Date Never Assessed Sex Assigned at Date Recorded Not on file documented as of this encounter Discharge Disposition Disposition Code Departure Means Destination Home or Self Penitentiary documented in this encounter Plan of Treatment Not on filedocumented as of this encounter Visit Diagnoses Not on filedocumented in this encounter Care Teams Sand Temperer Relationship Specialty Start Date End Date More Moody DO PCP - General 10/31/13 04/13/17 [address] [place] [id number] documented as of this encounter
--- OUTSIDE RECORDS SUMMARY | 2021-10-23 13:56 | XMS_ITS | Encounter Summary ---
:1965 Author Organization [facility] Address [address] [place] [address] Care Team Providers Name Role Phone More Moody DO Primary Care Provider Encounter Details Date Type Department Care Team Description 08/24/2014 Hospital Encounter [facility] - S Unknown, Pro Jluis clement MD [address] [facility] [phone] [place] [address] (Work) [phone] Social History Tobacco Use Types Packs/Day Years Used Date Never Assessed Sex Assigned at Date Recorded Not on file documented as of this encounter Discharge Disposition Disposition Code Departure Means Destination Home or Self Retirement documented in this encounter Plan of Treatment Not on filedocumented as of this encounter Visit Diagnoses Not on filedocumented in this encounter Care Teams Sql D[employer] Relationship Specialty Start Date End Date More Moody DO PCP - General 10/31/13 04/13/17 [address] [place] [id number] documented as of this encounter
--- NOTE | 2021-10-23 14:15 | DI.RAD_ITS ---
Exam(s) XR HIP PELVIS ADULT BL EXAM: XR HIP PELVIS ADULT BL CLINICAL HISTORY: New onset groin pain-bilaterally, bilateral hip pain, M52.551, M52.552. TECHNIQUE: 2D digital imaging was performed. Four views COMPARISON: XR PAIN CLINIC LUMBAR SP 2V from 05/08/2021 XR PAIN CLINIC LUMBAR SP 2V from 06/17/2021 XR PAIN CLINIC LUMBAR SP 2V from 08/27/2021 FINDINGS: BONES: No acute fracture is present. No bony destructive lesion is seen. JOINTS: No dislocation present. The joint spaces are well maintained. There there is no significant acetabular spurring. Hypertrophic changes of the SI joints, right greater than left. There are eleazar re degenerative disc changes in the lower lumbar spine. SOFT TISSUE: Normal. IMPRESSION: Unremarkable radiographs of bilat hips. Degenerative changes in the lower lumbar spine and SI joints . DATA REPOSITORY: RADIATION DOSE DELIVERED:
== END 2021-10-23 14:07 ==
PROVIDERS: PCP Family Medicine; Visit Provider Preventive Medicine Occupational Medicine
DX: M25.551 Pain in right hip (principal); M25.552 Pain in left hip; M47.816 Spondylosis without myelopathy or radiculopathy, lumbar region
CPT/HCPCS: 73521

== ENCOUNTER 2022-02-25 13:56 | Outpatient (CLI) | payer MEDICARE, SELFPAY ==
--- NOTE | 2022-02-25 06:00 | DI.RAD_ITS ---
Exam(s) XR PAIN CLINIC SACRIOILIAC 2V EXAM: XR PAIN CLINIC SACRIOILIAC 2V CLINICAL HISTORY: Dx: Sacroiliac Joint Dysfunction TECHNIQUE: 2D and realtime digital imaging was performed. Radiologist not present. CONTRAST MATERIAL: None. COMPARISON: No exams were available for comparison FINDINGS: Fluoroscopy was provided for pain management therapy. Please refer to procedure report or details. Cumulative dose: Ka,r=19.0 mGy IMPRESSION: RADIATION DOSE DELIVERED:
[2022-02-25 14:13] VITALS: BP 134/96; PULSE 68; RESP 20; TEMP 36.2; O2SAT 96
[2022-02-25] MEDS: Omnipaque 240 MG/ML 50 ML BTL IJ ×2 (14:38→14:42)
[2022-02-25] MEDS: methylPREDNISolone ACETATE 80 MG/ML VIAL IJ (14:42)
[2022-02-25 14:43] VITALS: BP 136/91; PULSE 79; RESP 19; O2SAT 99
--- NOTE | 2022-02-25 16:01 | PDOC.PAIN ---
Date of service: 02/25/22 Time of Service: 14:00 Pain Clinic Procedure Note Procedure Note Procedure Note: INTRA-ARTICULAR SI JOINT INJECTION More Temple has been referred to the [facility] for intra-articular SI joint injection. COMMENTS: She has previously had great relief with this procedure. Her pre-procedure pain VAS was 8/10 to the low back. Dx: Sacroiliac joint dysfunction Patient was interviewed and the medical record reviewed. There were no medical, pharmacologic, radiographic or other structural contraindications to attempting fluoroscopically guided intra-articular SI joint injection. Risks and expected side effects as well as potential benefit of the procedure were reviewed and voiced concerns addressed. The printed consent form was signed and witnessed. Standard time-out procedure was performed. Patient was placed in the prone position on the fluoroscopy table and automated blood pressure cuff and pulse oximeter applied. The skin entry point for approaching the bilateral SI joints was identified under the most advantageous fluoroscopic view and marked. Following thorough Chlorhexadine preparation of the skin and draping and 1% lidocaine infiltration of the skin entry point and subcutaneous tissues, a 22 gauge spinal needle was placed under fluoroscopic guidance into the bilateral SI joints was identified under the most advantageous fluoroscopic view and marked. Intra-articular placement was confirmed by a clear arthrogram resulting from the injection of 0.25ml Omnipaque 240, 1ml 1% lidocaine, and 40mg Depomedrol were injected intra-articularily to each side with an initial reproduction of a significant component of the usual pain. Vital signs were stable throughout the procedure and were as recorded in the docflowsheet by the nursing staff. If given, dosages of intravenous drugs for anxiolysis and analgesia were documented in MAR. Follow up plans and appointments were discussed with the patient. Post procedure instruction was given as documented in nursing documentation and having met discharge criteria, and was discharged from the [facility] Management [facility]. COMMENTS: Post-procedure pain VAS to the low back was 0/10. Alfredo Hernandez DO, MPH [facility]-Pain Management [facility] for [facility] CC: Matteo Grier
== END 2022-02-25 13:57 | disposition home or self-care (01) ==
PROVIDERS: PCP Family Medicine; Visit Provider Preventive Medicine Occupational Medicine
DX: M53.3 Sacrococcygeal disorders, not elsewhere classified (principal); M54.50 Low back pain, unspecified
CPT/HCPCS: 72200; G0260; J1040; Q9967